=== PATIENT | male | born 1965 | race Caucasian/White ===

== ENCOUNTER → 2019-08-25 19:01 | Outpatient (CLI) | payer OTHER, SELFPAY ==
--- NOTE | 2019-08-25 19:05 | DI.MRI.S_ITS ---
PROCEDURE: MR SHOULDER RT WO CON INDICATIONS: UNSPECIFIED INJURY OF RIGHT SHOULDER TECHNIQUE: Noncontrast oblique coronal T2 fast spin echo with fat saturation, oblique sagittal T1 spin echo and T2 fast spin echo with fat saturation, axial T1 spin echo and T2 fast spin echo with fat saturation through the shoulder. COMPARISON: None. FINDINGS: Image quality: Excellent. Rotator cuff: There is a full-thickness rupture of the distal supraspinatus and infraspinatus at their insertion on humeral head with 2.8 cm medial retraction of torn tendon fibers to the level of the acromioclavicular joint. Most posterior fibers of distal infraspinatus tendon is intact. Tendinosis and low to moderate grade intrasubstance partial-thickness tear involving distal subscapularis is seen. Sagittal images demonstrate mild to moderate supraspinatus muscle atrophy. Bones and bursae: No bone marrow contusions or fractures. Moderate osteoarthritic changes in acromioclavicular joint and glenohumeral joint are seen. Moderate amount of joint effusion and subacromial subdeltoid bursal fluid is noted. No definite intra-articular loose body is seen. Capsule and soft tissues: In the absence of intra-articular contrast, there is signal abnormality and contour irregularity involving superior anterior labrum at 12 to 2:00 position suggestive of superior anterior labral tear. There is also suggestion of anterior inferior labral tear extending from 4 to 7:00 position. The glenohumeral ligaments appear intact. Tendinosis involving proximal intra-articular portion of long head biceps tendon is seen. The rotator interval appears normal, without fibrosis. The coracohumeral ligament is normal in thickness. IMPRESSION: 1. Full-thickness rupture involving distal supraspinatus and anterior to mid fibers of distal infraspinatus at their insertion on humeral head with 2.8 cm medial retraction of torn tendon fibers to the level of acromioclavicular joint. Posterior fibers of distal infraspinatus tendon is intact. Tendinosis and low to moderate grade intrasubstance partial-thickness tear involving distal subscapularis. Mild to moderate supraspinatus muscle atrophy. 2. Moderate acromioclavicular joint and glenohumeral joint osteophytes. Moderate amount of joint effusion and subacromial subdeltoid bursal fluid. No definite full-thickness rotator cuff tendon rupture. 3. Suggestion of superior anterior labral tear at 12 to 2:00 position an anterior inferior labral tear at 4 to 7:00 position. 4. Tendinosis involving proximal intra-articular portion of long head of biceps tendon. Dictated by: Yovani Sims M.D. on 08/26/2019 at 8:41 Approved by: Yovani Sims M.D. on 08/26/2019 at 10:00
== END ==
PROVIDERS: Family Provider Physician Assistant; PCP Internal Medicine; Visit Provider Family Medicine
DX: M75.121 Complete rotator cuff tear or rupture of right shoulder, not specified as traumatic (principal); M25.711 Osteophyte, right shoulder
CPT/HCPCS: 73221

== ENCOUNTER → 2020-12-27 11:53 | Outpatient (CLI) | payer OTHER, SELFPAY ==
--- NOTE | 2020-12-27 11:55 | DI.RAD.S_ITS ---
PROCEDURE: XR FOOT LT MIN 3V INDICATIONS: left foot and toe pain TECHNIQUE: 3 views of the foot were acquired. COMPARISON: None. FINDINGS: Bones: Nondisplaced oblique fracture through 3rd proximal phalangeal shaft is seen. No other fracture or dislocation. 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 Mild hallux valgus is also noted. No suspicious bony lesions. Soft tissues: No tibiotalar joint effusion. Achilles tendon appears normal. IMPRESSION: Nondisplaced oblique fracture through 3rd proximal phalangeal shaft.. [id number] 1st MTP joint osteoarthritis. Dictated by: Yovani Sims M.D. on 12/27/2020 at 12:08 Approved by: Yovani Sims M.D. on 12/27/2020 at 12:09
== END ==
PROVIDERS: Family Provider Physician Assistant; PCP Internal Medicine; Referring Provider Nurse Practitioner; Visit Provider Nurse Practitioner
DX: M79.675 Pain in left toe(s) (principal); S92.515A Nondisplaced fracture of proximal phalanx of left lesser toe(s), initial encounter for closed fracture; M19.072 Primary osteoarthritis, left ankle and foot; X58.XXXA Exposure to other specified factors, initial encounter
CPT/HCPCS: 73630

== ENCOUNTER → 2021-01-17 16:31 | Outpatient (CLI) | payer OTHER, SELFPAY ==
--- NOTE | 2021-01-17 16:35 | DI.RAD.S_ITS ---
PROCEDURE: XR FOOT LT MIN 3V INDICATIONS: Follow-up persistent pain left foot 3rd toe TECHNIQUE: 3 views of the foot were acquired. COMPARISON: [facility], CR, XR FOOT LT MIN 3V, 12/27/2020, 11:57. FINDINGS: Bones: Redemonstration of oblique fracture of the 3rd proximal phalangeal shaft with surrounding periosteal reaction is compatible with progressive healing changes. There is also periosteal reaction at the base of the 4th proximal phalanx that likely represents a healing nondisplaced fracture that is not well visualized on the prior radiographs. Mild degenerative changes are again seen at the 1st metatarsophalangeal joint. Soft tissues: No suspicious soft tissue calcification. Nonspecific soft tissue edema is seen in the forefoot. IMPRESSION: Mild progressive healing changes involving the previously seen 3rd proximal phalangeal shaft fracture. Healing changes are also seen at a nondisplaced fracture of the 4th proximal phalanx. Dictated by: Thierry Jane M.D. on 01/17/2021 at 16:06 Approved by: Thierry Jane M.D. on 01/17/2021 at 16:08
== END ==
PROVIDERS: Family Provider Physician Assistant; Referring Provider Family Medicine; Visit Provider Family Medicine
DX: S92.592D Other fracture of left lesser toe(s), subsequent encounter for fracture with routine healing (principal); S92.515D Nondisplaced fracture of proximal phalanx of left lesser toe(s), subsequent encounter for fracture with routine healing; X58.XXXD Exposure to other specified factors, subsequent encounter
CPT/HCPCS: 73630

== ENCOUNTER → 2021-03-09 11:34 | Outpatient (CLI) | payer OTHER, SELFPAY ==
--- NOTE | 2021-03-09 11:37 | DI.RAD.S_ITS ---
PROCEDURE: XR LUMBAR SPINE 2-3V INDICATIONS: lower back pain TECHNIQUE: 3 views of the lumbar spine were acquired. COMPARISON: None. FINDINGS: Bones: 5 [id number] vertebrae are present. There is incomplete sacralization of the left L5 transverse process. There is normal bony alignment. Mild multilevel anterior endplate spur formation. Moderate L4-5 facet arthropathy. No vertebral body compression fractures. No suspicious bony lesions. Soft tissues: Mild L4-5 degenerative disc height loss. Overlying bowel gas pattern is normal. No suspicious soft tissue calcifications. IMPRESSION: 1. L4-5 disc height loss and facet arthropathy. Dictated by: Ebony Verma M.D. on 03/09/2021 at 12:24 Approved by: Ebony Verma M.D. on 03/09/2021 at 12:26
--- NOTE | 2021-03-09 11:37 | DI.RAD.S_ITS ---
PROCEDURE: XR HIP W PEL IF DONE LT 2V INDICATIONS: l hip pain TECHNIQUE: Two views of the hip were acquired. COMPARISON: None. FINDINGS: Bones: No fractures or dislocations. There is superior joint space loss in the femoroacetabular joint. Mild sclerotic changes of the acetabulum and slight spurring. No suspicious bony lesions. The visualized pelvic ring appears intact. Soft tissues: No suspicious soft tissue calcifications or masses. IMPRESSION: 1. Moderate femoroacetabular joint space loss with mild sclerosis and spurring. Dictated by: Ebony Verma M.D. on 03/09/2021 at 12:30 Approved by: Ebony Verma M.D. on 03/09/2021 at 12:32
== END ==
PROVIDERS: Family Provider Physician Assistant; PCP Internal Medicine; Referring Provider Physician Assistant; Visit Provider Physician Assistant
DX: M25.552 Pain in left hip (principal); M54.5 Low back pain; M47.816 Spondylosis without myelopathy or radiculopathy, lumbar region
CPT/HCPCS: 72100; 73502

== ENCOUNTER → 2021-04-13 17:41 | Outpatient (CLI) | payer OTHER, SELFPAY ==
--- NOTE | 2021-04-13 17:42 | DI.MRI.S_ITS ---
PROCEDURE: MR LUMBAR SPINE WO CON INDICATIONS: LUMBAR RADICULOPATHY TECHNIQUE: Noncontrast sagittal T1 spin echo and T2 fast echo, sagittal STIR, axial T1 and T2 fast spin echo through the lumbar spine. In cases with scoliosis, additional coronal T2 fast spin echo may be performed. COMPARISON: None. FINDINGS: Image quality: Excellent. Alignment and Curvature: Normal lumbar vertebral body height and alignment. Bone Marrow: No suspicious focal marrow signal abnormality. Mild periarticular bone marrow edema in association with facet osteoarthropathy from L3-L4 through L5-S1. Mild discogenic marrow edema at the opposing L1-L2 endplates posteriorly and on the left. Spinal Cord: Normal position and appearance of the conus. Region Soft Tissues: Prevertebral and paraspinous soft tissues are within normal limits. T12-L1: Disc desiccation and disc height loss with diffuse shallow disc bulge. No spinal canal or neural foraminal stenosis. L1-L2: Disc desiccation and disc height loss with shallow disc bulge and a superimposed broad-based posterior disc protrusion. Disc material flattens the ventral thecal sac without mass effect upon the descending L2 nerve roots. Foraminal components of the disc bulge and facet hypertrophy contribute to mild bilateral neural foraminal stenosis. Small facet effusions. L2-L3: Diffuse disc bulge and a superimposed broad-based posterior disc protrusion flatten and indent the ventral thecal sac with mild mass effect upon the descending L3 nerve roots. Bulky facet hypertrophy and buckling of the ligamentum flavum further contribute to overall moderate spinal canal stenosis. There is some laxity of the descending nerve roots above this level suggesting an element of compression. Foraminal components of the disc bulge and facet hypertrophy contribute to mild bilateral neural foraminal narrowing. Small facet effusions. L3-L4: Diffuse disc bulge and a superimposed broad-based posterior disc protrusion flatten and indent the ventral thecal sac, with mass effect upon the descending L4 nerve roots. Bulky facet hypertrophy and buckling of the ligamentum flavum further contribute to overall mild spinal canal stenosis. Buckling of the ligamentum flavum and facet hypertrophy combine with foraminal components of the disc bulge to produce mild bilateral neural foraminal narrowing. Facet subchondral cystic change and effusions noted. L4-L5: Moderate spinal canal stenosis due to a combination of diffuse disc bulge, superimposed broad-based posterior disc protrusion, facet hypertrophy, and buckling of the ligamentum flavum. There is crowding of the traversing nerve roots with near complete effacement of the intervening CSF. Foraminal components of the disc bulge and facet hypertrophy contribute to severe left and moderate right neural foraminal narrowing. Flattening of the bilateral exiting L4 nerve roots in both neural foramina. L5-S1: Diffuse disc bulge with mild mass effect upon the descending S1 nerve roots. No neural foraminal stenosis. IMPRESSION: Moderate spinal canal stenosis at L2-L3 and L4-L5 with crowding and possible compression of the descending nerve roots at these levels. Severe left and moderate right neural foraminal stenosis at L4-L5 with flattening of the bilateral exiting L4 nerve roots. Correlate for any corresponding L4 radicular symptoms. Dictated by: Yan Reis M.D. on 04/14/2021 at 9:26 Approved by: Yan Reis M.D. on 04/14/2021 at 9:30
== END ==
PROVIDERS: Family Provider Physician Assistant; PCP Student in an Organized Health Care Education/Training Program; Referring Provider Student in an Organized Health Care Education/Training Program; Visit Provider Student in an Organized Health Care Education/Training Program
DX: M54.16 Radiculopathy, lumbar region (principal); M48.061 Spinal stenosis, lumbar region without neurogenic claudication
CPT/HCPCS: 72148

== ENCOUNTER 2021-06-29 09:00 | Outpatient (RCR) | payer OTHER, SELFPAY ==
--- NOTE | 2021-05-18 17:05 | PT.OIE ---
Current Diagnoses Radiculopathy, lumbar region (05/18/21) Past Medical History (Last Reviewed 03/11/21 @ 09:28 by GIO Rhodes) Hearing loss No significant family history Vision disorder Visit Care Team Role Provider Type Billy Flores DO Attending Provider Non-Staff Family Provider Primary Care Provider Referring Provider Specialty: Family Practice Address: [address] [place] [address], [id number] Email: Physical Therapy Initial Evaluation PT-OP-A Visit Information Start: 05/18/21 15:14 Freq: Status: Active Protocol: Document 05/18/21 16:00 AW (Rec: 05/18/21 16:28 AW [email or web address]) Out-Patient Physical Therapy Visit Information Visit Information Visit Type Initial Evaluation Visit Start Time 15:15 Visit Stop Time 16:00 Total Visit Minutes 45 Visit Number 1 Number of TRANSIT SPECIALIST Visits 0 Evaluation Information Evaluation Date 05/18/21 PT-OP-B Current Condition Start: 05/18/21 15:14 Freq: Status: Active Protocol: Document 05/18/21 16:00 AW (Rec: 05/18/21 16:05 AW [id number]) Current Condition History of Current Condition Onset Date 03/02/21 Current Complaints left groin; low back; left buttock, thigh, leg pain History of Current Condition 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 At time of evaluation, he had not been to work in three weeks. Pain is a near- constant 4/10 but easily climbs to 7/10. He complains of left leg weakness and states he feels paranoid about increasing that pain. He is now unable to complete a grocery shopping trip due to left leg and low back pain. He had THU at unknown level about two weeks ago but experienced no relief. He has prescriptions for gabapentin and meloxicam and flexeril. He has tried topical and oral CBD. Nothing has relieved his pain. Barely able to walk around [employer]. Normally able to lift as much as needed at work. Prior Treatments and Tests MRI 04/13/21: Moderate spinal canal stenosis at L2-L3 and L4 -L5 with crowding and possible compression of the descending nerve roots at these levels. Severe left and moderate right neural foraminal stenosis at L4-L5 with flattening of the bilateral exiting L4 nerve roots. Correlate for any corresponding L4 radicular symptoms. Future Testing and Treatments Planned Follow up with [facility] - Dr Rider - next week. Treatment Goals Patient/Caregiver Goals Return to work to include lifting, sitting, driving. Recreationally, pt would like to return to swimming, road cycling, MTB. He would like to be able to sleep without pain interrupting. 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 Able to sit and drive up to five hours without pain. Baseline Function- Recreation/Hobbies Participates in swimming, road cycling, and mountain biking. Current Functional Impairments (Reported) Functional Limitations- ADL's Mild to moderate difficulty with lower body dressing tasks . Functional Limitations- Work/School Unable to lift. Unable to sit or drive longer than 10 minutes. Functional Limitations- Recreation/ Unable to swim or bike. Hobbies Functional Limitations- Other Painful sleep Personal Factors Other Personal Factors That May Effect (+) Prior level of activity Therapy/Recovery PT-OP-C Subjective Start: 05/18/21 15:14 Freq: Status: Active Protocol: Document 05/18/21 16:00 AW (Rec: 05/18/21 16:28 AW [email or web address]) OP-PT Subjective Patient Comments Patient Comments Pt reports primary concern is leg pain and weakness. Patient Questionnaires Oswestry Low Back Index Oswestry Score 76 Oswestry Impairment 60 to 79% Impaired (Score 60- 79) OP-PT Pain Assessment Pain Assessment Grid Paper Pain Assessment Grid Completed Yes: Scanned to EMR Pain Behaviors Pain Behaviors Facial Grimacing,Guarding, Holding Area,Wincing PT-OP-D Balance Start: 05/18/21 15:14 Freq: Status: Active Protocol: Document 05/18/21 16:00 AW (Rec: 05/18/21 16:32 AW [email or web address]) OP-PT Balance Assessment Sitting Balance Static Sitting Balance Ability Good Dynamic Sitting Balance Ability Good Standing Balance Static Standing Balance Ability Fair Dynamic Standing Balance Ability Fair Device Used none Standing Balance Comments SLS: R 5 sec, L <3 sec on multiple trials Sommer Fall Scale Copyright Permission PT-OP-F Manual Assessment Start: 05/18/21 15:14 Freq: Status: Active Protocol: Document 05/18/21 16:00 AW (Rec: 05/18/21 16:32 AW [email or web address]) Manual Assessments Soft Tissue Assessment Soft Tissue Mobility Assessment Pt is tender to palpation at left groin, lateral and posterior hip. Joint Mobility Assessment Joint Mobility Assessment Lumbar PA's WNL PT-OP-H Neuro Start: 05/18/21 15:14 Freq: Status: Active Protocol: Document 05/18/21 16:00 AW (Rec: 05/18/21 16:32 AW [email or web address]) Sensation Evaluation Comments Summary Comments Light touch and temperature sensation intact. Pt highly reactive to pressure at left groin, lateral and posterior hip. Deep Tendon Reflex & Clonus Assessment Deep Tendon Reflex Bilateral Achilles Deep Tendon Reflex 0 Absent Bilateral Patellar Deep Tendon Reflex 1+ Diminished Bilateral Bicep Deep Tendon Reflex 2+ Normal PT-OP-J Posture/Palpation/Skin Start: 05/18/21 15:14 Freq: Status: Active Protocol: Document 05/18/21 16:00 AW (Rec: 05/18/21 16:32 AW [email or web address]) Posture Evaluation Comments Posture Comments Pt presents with decreased LLE weightbearing due to pain and guarding behaviors. PT-OP-K Range of Motion Start: 05/18/21 15:14 Freq: Status: Active Protocol: Document 05/18/21 16:00 AW (Rec: 05/18/21 16:42 AW [email or web address]) Lumbar Spine Range of Motion Lumbar Spine Active Degrees Testing Position Standing Flexion 70 Extension 20 ROM Limitations Pain Comments R SB: 1.5 above knee joint line. L SB: to knee joint line . B rotation WNL. All lateral flexion and rotation painful but left more affected than right. Hip Goniometric Range of Motion Hip ROM Limitations Comments All hip ROM WNL except left hip internal rotation severely limited by guarding and pain. PT-OP-M Strength Start: 05/18/21 15:14 Freq: Status: Active Protocol: Document 05/18/21 16:00 AW (Rec: 05/18/21 16:42 AW [email or web address]) Hip Strength Hip Manual Muscle Testing Right Flexion (L2) 5 Normal Extension (S1) 4+ Good+ Abduction 5 Normal External Rotation 5 Normal Internal Rotation 5 Normal Left Flexion (L2) 3- Fair- Extension (S1) 3 Fair Abduction 3 Fair External Rotation 4- Good- Internal Rotation 4 Good Knee Strength Knee Manual Muscle Testing bilateral Flexion (S2) 4+ Good+ Extension (L3) 5 Normal Ankle/Foot Strength Ankle and Foot Manual Muscle Testing bilateral Comments R DF 5/5. L DF 4+/5 Toe Strength Toe Manual Muscle Testing Great Toe Comments R 5/5. L 4+/5. PT-OP-Q Treatments Start: 05/18/21 15:14 Freq: Status: Active Protocol: Document 05/18/21 16:00 AW (Rec: 05/18/21 16:42 AW [email or web address]) Therapeutic Exercises Supine Exercises LTR Supine Exercise Name LTR Side bilateral Reps/Minutes 2x10 Comments cued pain free range Self-Care/Home Management Treatment Education Patient Education Body Mechanics,Posture Activities Self-Care/Home Management Activities Educated pt on sleep positioning and bed mobility for improved stability. PT-OP-T Assessment and Plan Start: 05/18/21 15:14 Freq: Status: Active Protocol: Document 05/18/21 16:00 AW (Rec: 05/18/21 17:05 AW [email or web address]) Physical Therapy Assessment Rehab Potential Rehabilitation Potential Good Evaluation Complexity Number of Personal Factors/Comorbidities 1-2 Number of Body Systems Impaired 1-2 Clinical Presentation at Evaluation Evolving Impairments Impairments Balance,Functional Activities, Functional Mobility,Gait,Pain, Posture,ROM,Sensation,Soft Tissue Mobility,Strength Goals Five Impairment lifting Short Term Goal (STG) Pt will demonstrate quality body mechanics to lift objects of 10# without increase in baseline pain. STG Duration 6 weeks - 06/29/21 Halfway Goal (LTG) Pt will demonstrate quality body mechanics to lift objects of 20# without increase in baseline pain to promote readiness for return to work. LTG Duration 12 weeks - 08/10/21 Four Impairment sitting tolerance Short Term Goal (STG) Pt will sit 45 minutes or greater without increase in baseline pain. 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 STG Duration 6 weeks - 06/29/21 Clinical Statistical Programmer Goal (LTG) Pt will score 30% or less on Modified Oswestry for improved ability to manage daily tasks and return to work. LTG Duration 12 weeks - 08/10/21 Two Impairment self-care Short Term Goal (STG) Pt will be able to complete lower body dressing tasks with 3/10 or less pain. STG Duration 6 weeks - 06/29/21 Clinical Statistical Programmer Goal (LTG) Pt will complete all ADL's with 1/10 or less pain. LTG Duration 12 weeks - 08/10/21 One Impairment lacks appropriate HEP Short Term Goal (STG) Pt will be independent with HEP to support therapy services provided in clinic. STG Duration 6 weeks - 06/29/21 Clinical Statistical Programmer Goal (LTG) Pt will return to recreational activity of choice such as swimming or cycling LTG Duration 12 weeks - 08/10/21 Assessment Summary Assessment Michael is an active 56 yo man presenting to outpatient physical therapy with complaints of low back and left leg pain which are affecting his ability to perform work duties. MRI findings include central canal and foraminal compression at L2-L3 and L4-L5 (severe on the left at L4-5). 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 All lumbar ROM is painful and left leg is globally weak. He complains of pain in the sciatic distribution which is worse with movement. Pt would benefit from skilled therapy aimed at improving lumbar range of motion and left lower extremity strength and balance with the ultimate goal of return to work. Physical Therapy Plan Frequency and Duration Frequency of Treatment 2x/Week Duration of Treatment 12 weeks Plan of Care Start Date 05/18/21 Plan of Care End Date 08/10/21 Therapeutic Interventions Therapeutic Interventions Aquatic Therapy,Balance Training,Gait Training,Home Exercise Program,Joint Mobilizations,Manual Therapy, Neuromuscular Re-education, Patient/Caregiver Education, Self-Care/Home Management, Sensory Integration,Soft Tissue Mobilization,Taping, Therapeutic Activities, Therapeutic Exercises Modalities Cold Pack/Ice Massage,Electric Stimulation,Hot Packs Next Visit Focus/Plan Next Note Type Treatment Note Next Visit Plan initiate manual therapy, gentle lumbar ROM and hip strengthening in supported position; consider mixing supine and seated or frequent changes in position for pt comfort
--- NOTE | 2021-05-20 08:13 | PT.OTN ---
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 At time of evaluation, he had not been to work in three weeks. Pain is a near- constant 4/10 but easily climbs to 7/10. He complains of left leg weakness and states he feels paranoid about increasing that pain. He is now unable to complete a grocery shopping trip due to left leg and low back pain. He had THU at unknown level about two weeks ago but experienced no relief. He has prescriptions for gabapentin and meloxicam and flexeril. He has tried topical and oral CBD. Nothing has relieved his pain. Barely able to walk around [employer]. Normally able to lift as much as needed at work. Prior Treatments and Tests MRI 04/13/21: Moderate spinal canal stenosis at L2-L3 and L4 -L5 with crowding and possible compression of the descending nerve roots at these levels. Severe left and moderate right neural foraminal stenosis at L4-L5 with flattening of the bilateral exiting L4 nerve roots. Correlate for any corresponding L4 radicular symptoms. Future Testing and Treatments Planned Follow up with [facility] - Dr Rider - next week. Treatment Goals Patient/Caregiver Goals Return to work to include lifting, sitting, driving. Recreationally, pt would like to return to swimming, road cycling, MTB. He would like to be able to sleep without pain interrupting. 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 Able to sit and drive up to five hours without pain. Baseline Function- Recreation/Hobbies Participates in swimming, road cycling, and mountain biking. Current Functional Impairments (Reported) Functional Limitations- ADL's Mild to moderate difficulty with lower body dressing tasks . Functional Limitations- Work/School Unable to lift. Unable to sit or drive longer than 10 minutes. Functional Limitations- Recreation/ Unable to swim or bike. Hobbies Functional Limitations- Other Painful sleep Personal Factors Other Personal Factors That May Effect (+) Prior level of activity Therapy/Recovery PT-OP-C Subjective Start: 05/18/21 15:14 Freq: Status: Active Protocol: Document 05/20/21 07:28 SP (Rec: 05/20/21 08:20 SP [id number]) OP-PT Subjective Patient Comments Patient Comments Pt reports the HEP had helped and performing at home, felt better after last tx. Pt continues to have debilitating pain that radiates into L glut and anterior L thigh and limits his activity. He has an inversion table, felt out once but since has a better understanding but not getting the instintanious relief had hoped. PT-OP-D Balance Start: 05/18/21 15:14 Freq: Status: Active Protocol: Document 05/18/21 16:00 AW (Rec: 05/18/21 16:32 AW [email or web address]) OP-PT Balance Assessment Sitting Balance Static Sitting Balance Ability Good Dynamic Sitting Balance Ability Good Standing Balance Static Standing Balance Ability Fair Dynamic Standing Balance Ability Fair Device Used none Standing Balance Comments SLS: R 5 sec, L <3 sec on multiple trials Sommer Fall Scale Copyright Permission PT-OP-F Manual Assessment Start: 05/18/21 15:14 Freq: Status: Active Protocol: Document 05/18/21 16:00 AW (Rec: 05/18/21 16:32 AW [email or web address]) Manual Assessments Soft Tissue Assessment Soft Tissue Mobility Assessment Pt is tender to palpation at left groin, lateral and posterior hip. Joint Mobility Assessment Joint Mobility Assessment Lumbar PA's WNL PT-OP-H Neuro Start: 05/18/21 15:14 Freq: Status: Active Protocol: Document 05/18/21 16:00 AW (Rec: 05/18/21 16:32 AW [email or web address]) Sensation Evaluation Comments Summary Comments Light touch and temperature sensation intact. Pt highly reactive to pressure at left groin, lateral and posterior hip. Deep Tendon Reflex & Clonus Assessment Deep Tendon Reflex Bilateral Achilles Deep Tendon Reflex 0 Absent Bilateral Patellar Deep Tendon Reflex 1+ Diminished Bilateral Bicep Deep Tendon Reflex 2+ Normal PT-OP-J Posture/Palpation/Skin Start: 05/18/21 15:14 Freq: Status: Active Protocol: Document 05/18/21 16:00 AW (Rec: 05/18/21 16:32 AW [email or web address]) Posture Evaluation Comments Posture Comments Pt presents with decreased LLE weightbearing due to pain and guarding behaviors. PT-OP-K Range of Motion Start: 05/18/21 15:14 Freq: Status: Active Protocol: Document 05/18/21 16:00 AW (Rec: 05/18/21 16:42 AW [email or web address]) Lumbar Spine Range of Motion Lumbar Spine Active Degrees Testing Position Standing Flexion 70 Extension 20 ROM Limitations Pain Comments R SB: 1.5 above knee joint line. L SB: to knee joint line . B rotation WNL. All lateral flexion and rotation painful but left more affected than right. Hip Goniometric Range of Motion Hip ROM Limitations Comments All hip ROM WNL except left hip internal rotation severely limited by guarding and pain. PT-OP-M Strength Start: 05/18/21 15:14 Freq: Status: Active Protocol: Document 05/18/21 16:00 AW (Rec: 05/18/21 16:42 AW [email or web address]) Hip Strength Hip Manual Muscle Testing Right Flexion (L2) 5 Normal Extension (S1) 4+ Good+ Abduction 5 Normal External Rotation 5 Normal Internal Rotation 5 Normal Left Flexion (L2) 3- Fair- Extension (S1) 3 Fair Abduction 3 Fair External Rotation 4- Good- Internal Rotation 4 Good Knee Strength Knee Manual Muscle Testing bilateral Flexion (S2) 4+ Good+ Extension (L3) 5 Normal Ankle/Foot Strength Ankle and Foot Manual Muscle Testing bilateral Comments R DF 5/5. L DF 4+/5 Toe Strength Toe Manual Muscle Testing Great Toe Comments R 5/5. L 4+/5. PT-OP-Q Treatments Start: 05/18/21 15:14 Freq: Status: Active Protocol: Document 05/20/21 07:28 SP (Rec: 05/20/21 08:20 SP [id number]) Therapeutic Exercises Supine Exercises sciatic nerve glide Supine Exercise Name w/ ankle pump Side left Reps/Minutes x10 Comments cued neutral spine LTR Supine Exercise Name LTR Side bilateral Reps/Minutes 2x10 Comments cued pain free range Sitting Exercises trunk flexion Sitting Exercise Name stretch Reps/Minutes 30 x3 Comments good feedback feels good, no pain Manual Therapy Treatment Soft Tissue Mobilization STMs Body Location L paraspinals, glut med, pirformis, L adductors Mobilization Type Cross-Friction,Myofascial Release,Sustained Pressure Intensity/Depth Moderate Body Position Prone Comments and supine. Good response feedback. PT-OP-T Assessment and Plan Start: 05/18/21 15:14 Freq: Status: Active Protocol: Document 05/20/21 07:28 SP (Rec: 05/20/21 08:20 SP [id number]) Physical Therapy Assessment Goals Five Impairment lifting Short Term Goal (STG) Pt will demonstrate quality body mechanics to lift objects of 10# without increase in baseline pain. STG Duration 6 weeks - 06/29/21 Mcfp Goal (LTG) Pt will demonstrate quality body mechanics to lift objects of 20# without increase in baseline pain to promote readiness for return to work. LTG Duration 12 weeks - 08/10/21 Four Impairment sitting tolerance Short Term Goal (STG) Pt will sit 45 minutes or greater without increase in baseline pain. 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 STG Duration 6 weeks - 06/29/21 Mcfp Goal (LTG) Pt will score 30% or less on Modified Oswestry for improved ability to manage daily tasks and return to work. LTG Duration 12 weeks - 08/10/21 Two Impairment self-care Short Term Goal (STG) Pt will be able to complete lower body dressing tasks with 3/10 or less pain. STG Duration 6 weeks - 06/29/21 Mcfp Goal (LTG) Pt will complete all ADL's with 1/10 or less pain. LTG Duration 12 weeks - 08/10/21 One Impairment lacks appropriate HEP Short Term Goal (STG) Pt will be independent with HEP to support therapy services provided in clinic. STG Duration 6 weeks - 06/29/21 Asphalt Still Operator Goal (LTG) Pt will return to recreational activity of choice such as swimming or cycling LTG Duration 12 weeks - 08/10/21 Assessment Summary Assessment Pt reported no significant relief but not worsening post manual or ther ex instructed today. Pt required instruction in slow fluid movement during pelvic tilt, LTR, initiated seated hip hinge trunk flexion with best relief almost no pain and sciatic nerve glide no worse. Trialed self manual racquetball roll at wall over paraspinals with increase radiation pain into anterior L thigh so stopped. Pt likes to perform hip hinge long sitting and standing for relief no worsening pain. Physical Therapy Plan Frequency and Duration Frequency of Treatment 2x/Week Duration of Treatment 12 weeks Plan of Care Start Date 05/18/21 Plan of Care End Date 08/10/21 Therapeutic Interventions Therapeutic Interventions Aquatic Therapy,Balance Training,Gait Training,Home Exercise Program,Joint Mobilizations,Manual Therapy, Neuromuscular Re-education, Patient/Caregiver Education, Self-Care/Home Management, Sensory Integration,Soft Tissue Mobilization,Taping, Therapeutic Activities, Therapeutic Exercises Modalities Cold Pack/Ice Massage,Electric Stimulation,Hot Packs Next Visit Focus/Plan Next Note Type Treatment Note Next Visit Plan Assess response to manual and HEP review with additions see assessment. POC: initiate manual therapy, gentle lumbar ROM and hip strengthening in supported position; consider mixing supine and seated or frequent changes in position for pt comfort
--- NOTE | 2021-05-25 09:41 | PT.OTN ---
Current Diagnoses Radiculopathy, lumbar region (05/25/21) Physical Therapy Treatment Note PT-OP-A Visit Information Start: 05/18/21 15:14 Freq: Status: Active Protocol: Document 05/25/21 09:33 AW (Rec: 05/25/21 09:38 AW [id number]) Out-Patient Physical Therapy Visit Information Visit Information Visit Type Treatment Note Visit Start Time 09:00 Visit Stop Time 09:33 Total Visit Minutes 33 Visit Number 3 Number of DIRECTOR FURNITURE Visits 0 Evaluation Information Evaluation Date 05/18/21 PT-OP-B Current Condition Start: 05/18/21 15:14 Freq: Status: Active Protocol: Document 05/18/21 16:00 AW (Rec: 05/18/21 16:05 AW [id number]) Current Condition History of Current Condition Onset Date 03/02/21 Current Complaints left groin; low back; left buttock, thigh, leg pain History of Current Condition Pt is a [place] [employer]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 At time of evaluation, he had not been to work in three weeks. Pain is a near- constant 4/10 but easily climbs to 7/10. He complains of left leg weakness and states he feels paranoid about increasing that pain. He is now unable to complete a grocery shopping trip due to left leg and low back pain. He had THU at unknown level about two weeks ago but experienced no relief. He has prescriptions for gabapentin and meloxicam and flexeril. He has tried topical and oral CBD. Nothing has relieved his pain. Barely able to walk around [employer]. Normally able to lift as much as needed at work. Prior Treatments and Tests MRI 04/13/21: Moderate spinal canal stenosis at L2-L3 and L4 -L5 with crowding and possible compression of the descending nerve roots at these levels. Severe left and moderate right neural foraminal stenosis at L4-L5 with flattening of the bilateral exiting L4 nerve roots. Correlate for any corresponding L4 radicular symptoms. Future Testing and Treatments Planned Follow up with [facility] - Dr Rider - next week. Treatment Goals Patient/Caregiver Goals Return to work to include lifting, sitting, driving. Recreationally, pt would like to return to swimming, road cycling, MTB. He would like to be able to sleep without pain interrupting. 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 Able to sit and drive up to five hours without pain. Baseline Function- Recreation/Hobbies Participates in swimming, road cycling, and mountain biking. Current Functional Impairments (Reported) Functional Limitations- ADL's Mild to moderate difficulty with lower body dressing tasks . Functional Limitations- Work/School Unable to lift. Unable to sit or drive longer than 10 minutes. Functional Limitations- Recreation/ Unable to swim or bike. Hobbies Functional Limitations- Other Painful sleep Personal Factors Other Personal Factors That May Effect (+) Prior level of activity Therapy/Recovery PT-OP-C Subjective Start: 05/18/21 15:14 Freq: Status: Active Protocol: Document 05/25/21 09:33 AW (Rec: 05/25/21 09:38 AW [id number]) OP-PT Subjective Patient Comments Patient Comments Pt is back to work today but not doing a lot of lifting. Will be driving but will be able to stop and stand as needed. PT-OP-D Balance Start: 05/18/21 15:14 Freq: Status: Active Protocol: Document 05/18/21 16:00 AW (Rec: 05/18/21 16:32 AW [email or web address]) OP-PT Balance Assessment Sitting Balance Static Sitting Balance Ability Good Dynamic Sitting Balance Ability Good Standing Balance Static Standing Balance Ability Fair Dynamic Standing Balance Ability Fair Device Used none Standing Balance Comments SLS: R 5 sec, L <3 sec on multiple trials Sommer Fall Scale Copyright Permission PT-OP-F Manual Assessment Start: 05/18/21 15:14 Freq: Status: Active Protocol: Document 05/18/21 16:00 AW (Rec: 05/18/21 16:32 AW [email or web address]) Manual Assessments Soft Tissue Assessment Soft Tissue Mobility Assessment Pt is tender to palpation at left groin, lateral and posterior hip. Joint Mobility Assessment Joint Mobility Assessment Lumbar PA's WNL PT-OP-H Neuro Start: 05/18/21 15:14 Freq: Status: Active Protocol: Document 05/18/21 16:00 AW (Rec: 05/18/21 16:32 AW [email or web address]) Sensation Evaluation Comments Summary Comments Light touch and temperature sensation intact. Pt highly reactive to pressure at left groin, lateral and posterior hip. Deep Tendon Reflex & Clonus Assessment Deep Tendon Reflex Bilateral Achilles Deep Tendon Reflex 0 Absent Bilateral Patellar Deep Tendon Reflex 1+ Diminished Bilateral Bicep Deep Tendon Reflex 2+ Normal PT-OP-J Posture/Palpation/Skin Start: 05/18/21 15:14 Freq: Status: Active Protocol: Document 05/18/21 16:00 AW (Rec: 05/18/21 16:32 AW [email or web address]) Posture Evaluation Comments Posture Comments Pt presents with decreased LLE weightbearing due to pain and guarding behaviors. PT-OP-K Range of Motion Start: 05/18/21 15:14 Freq: Status: Active Protocol: Document 05/18/21 16:00 AW (Rec: 05/18/21 16:42 AW [email or web address]) Lumbar Spine Range of Motion Lumbar Spine Active Degrees Testing Position Standing Flexion 70 Extension 20 ROM Limitations Pain Comments R SB: 1.5 above knee joint line. L SB: to knee joint line . B rotation WNL. All lateral flexion and rotation painful but left more affected than right. Hip Goniometric Range of Motion Hip ROM Limitations Comments All hip ROM WNL except left hip internal rotation severely limited by guarding and pain. PT-OP-M Strength Start: 05/18/21 15:14 Freq: Status: Active Protocol: Document 05/18/21 16:00 AW (Rec: 05/18/21 16:42 AW [email or web address]) Hip Strength Hip Manual Muscle Testing Right Flexion (L2) 5 Normal Extension (S1) 4+ Good+ Abduction 5 Normal External Rotation 5 Normal Internal Rotation 5 Normal Left Flexion (L2) 3- Fair- Extension (S1) 3 Fair Abduction 3 Fair External Rotation 4- Good- Internal Rotation 4 Good Knee Strength Knee Manual Muscle Testing bilateral Flexion (S2) 4+ Good+ Extension (L3) 5 Normal Ankle/Foot Strength Ankle and Foot Manual Muscle Testing bilateral Comments R DF 5/5. L DF 4+/5 Toe Strength Toe Manual Muscle Testing Great Toe Comments R 5/5. L 4+/5. PT-OP-Q Treatments Start: 05/18/21 15:14 Freq: Status: Active Protocol: Document 05/25/21 09:33 AW (Rec: 05/25/21 09:38 AW [id number]) Therapeutic Exercises Supine Exercises bent knee fall out Supine Exercise Name bent knee fall out and december Side bilateral Comments TrA awareness; PPT hip flexion december Supine Exercise Name leg off L side of mat, raise to mat with knee bent Side left Comments too irritating; dc'ed bridge Supine Exercise Name bridge Reps/Minutes 5SH x 10; 2 sets Comments initiate with PPT piriformis stretch Supine Exercise Name piriformis stretch Side bilateral Reps/Minutes 30 sec hold x 4 pelvic tilt Supine Exercise Name anterior and posterior Reps/Minutes x 10 sciatic nerve glide Supine Exercise Name w/ ankle pump Side left Reps/Minutes x10 Comments cued neutral spine LTR Supine Exercise Name LTR Side bilateral Reps/Minutes 2x10 Comments cued pain free range Standing Exercises hip hinge Standing Exercise Name hip hinge Equipment Used dowel for tactile feedback Reps/Minutes 8 x 2 Comments cued neutral spine Self-Care/Home Management Treatment Education Patient Education Body Mechanics,Home Exercise Program,Posture Activities Self-Care/Home Management Activities Reinforced HEP. Introduced hip hinge to beging working toward lifting activities. PT-OP-T Assessment and Plan Start: 05/18/21 15:14 Freq: Status: Active Protocol: Document 05/25/21 09:33 AW (Rec: 05/25/21 09:41 AW [id number]) Physical Therapy Assessment Goals Five Impairment lifting Short Term Goal (STG) Pt will demonstrate quality body mechanics to lift objects of 10# without increase in baseline pain. STG Duration 6 weeks - 06/29/21 Gandy Dancer Goal (LTG) Pt will demonstrate quality body mechanics to lift objects of 20# without increase in baseline pain to promote readiness for return to work. LTG Duration 12 weeks - 08/10/21 Four Impairment sitting tolerance Short Term Goal (STG) Pt will sit 45 minutes or greater without increase in baseline pain. 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 STG Duration 6 weeks - 06/29/21 Retirement Goal (LTG) Pt will score 30% or less on Modified Oswestry for improved ability to manage daily tasks and return to work. LTG Duration 12 weeks - 08/10/21 Two Impairment self-care Short Term Goal (STG) Pt will be able to complete lower body dressing tasks with 3/10 or less pain. STG Duration 6 weeks - 06/29/21 Gandy Dancer Goal (LTG) Pt will complete all ADL's with 1/10 or less pain. LTG Duration 12 weeks - 08/10/21 One Impairment lacks appropriate HEP Short Term Goal (STG) Pt will be independent with HEP to support therapy services provided in clinic. STG Duration 6 weeks - 06/29/21 Retirement Goal (LTG) Pt will return to recreational activity of choice such as swimming or cycling LTG Duration 12 weeks - 08/10/21 Assessment Summary Assessment Pt presents with decreased irritability of pain symptoms today. He tolerated ther ex and was receptive to postural education with regard to lifting but requires frequent verbal and tactile cues to maintain neutral spine in supine and in standing. Physical Therapy Plan Frequency and Duration Frequency of Treatment 2x/Week Duration of Treatment 12 weeks Plan of Care Start Date 05/18/21 Plan of Care End Date 08/10/21 Therapeutic Interventions Therapeutic Interventions Aquatic Therapy,Balance Training,Gait Training,Home Exercise Program,Joint Mobilizations,Manual Therapy, Neuromuscular Re-education, Patient/Caregiver Education, Self-Care/Home Management, Sensory Integration,Soft Tissue Mobilization,Taping, Therapeutic Activities, Therapeutic Exercises Modalities Cold Pack/Ice Massage,Electric Stimulation,Hot Packs Next Visit Focus/Plan Next Note Type Treatment Note Next Visit Plan POC: manual therapy, gentle lumbar ROM and hip strengthening in supported and standing position with emphasis on neutral spine; frequent changes in position for pt comfort
--- NOTE | 2021-05-27 08:53 | PT.OTN ---
Current Diagnoses Radiculopathy, lumbar region (05/27/21) Physical Therapy Treatment Note PT-OP-A Visit Information Start: 05/18/21 15:14 Freq: Status: Active Protocol: Document 05/27/21 08:14 SP (Rec: 05/27/21 09:02 SP [id number]) Out-Patient Physical Therapy Visit Information Visit Information Visit Type Treatment Note Visit Note Pt reported needed to leave early to get back to work. 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 At time of evaluation, he had not been to work in three weeks. Pain is a near- constant 4/10 but easily climbs to 7/10. He complains of left leg weakness and states he feels paranoid about increasing that pain. He is now unable to complete a grocery shopping trip due to left leg and low back pain. He had THU at unknown level about two weeks ago but experienced no relief. He has prescriptions for gabapentin and meloxicam and flexeril. He has tried topical and oral CBD. Nothing has relieved his pain. Barely able to walk around [employer]. Normally able to lift as much as needed at work. Prior Treatments and Tests MRI 04/13/21: Moderate spinal canal stenosis at L2-L3 and L4 -L5 with crowding and possible compression of the descending nerve roots at these levels. Severe left and moderate right neural foraminal stenosis at L4-L5 with flattening of the bilateral exiting L4 nerve roots. Correlate for any corresponding L4 radicular symptoms. Future Testing and Treatments Planned Follow up with ALYSON Rider - next week. Treatment Goals Patient/Caregiver Goals Return to work to include lifting, sitting, driving. Recreationally, pt would like to return to swimming, road cycling, MTB. He would like to be able to sleep without pain interrupting. 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 Able to sit and drive up to five hours without pain. Baseline Function- Recreation/Hobbies Participates in swimming, road cycling, and mountain biking. Current Functional Impairments (Reported) Functional Limitations- ADL's Mild to moderate difficulty with lower body dressing tasks . Functional Limitations- Work/School Unable to lift. Unable to sit or drive longer than 10 minutes. Functional Limitations- Recreation/ Unable to swim or bike. Hobbies Functional Limitations- Other Painful sleep Personal Factors Other Personal Factors That May Effect (+) Prior level of activity Therapy/Recovery PT-OP-C Subjective Start: 05/18/21 15:14 Freq: Status: Active Protocol: Document 05/27/21 08:14 SP (Rec: 05/27/21 09:02 SP [id number]) OP-PT Subjective Patient Comments Patient Comments Pt stated still having L hip pain more posterolateral than in groin lately and doesn't feel the injection has helped and wondered why got. Did have his girlfriend massage around his hip and not sure made significant difference in pain . Comes in at 5/10 pain and gets twinges of shooting laterally down L thigh to knee especially during WB coming up to standing if sitting to long. Patient Reported Progress Same PT-OP-D Balance Start: 05/18/21 15:14 Freq: Status: Active Protocol: Document 05/18/21 16:00 AW (Rec: 05/18/21 16:32 AW [email or web address]) OP-PT Balance Assessment Sitting Balance Static Sitting Balance Ability Good Dynamic Sitting Balance Ability Good Standing Balance Static Standing Balance Ability Fair Dynamic Standing Balance Ability Fair Device Used none Standing Balance Comments SLS: R 5 sec, L <3 sec on multiple trials Sommer Fall Scale Copyright Permission PT-OP-F Manual Assessment Start: 05/18/21 15:14 Freq: Status: Active Protocol: Document 05/18/21 16:00 AW (Rec: 05/18/21 16:32 AW [email or web address]) Manual Assessments Soft Tissue Assessment Soft Tissue Mobility Assessment Pt is tender to palpation at left groin, lateral and posterior hip. Joint Mobility Assessment Joint Mobility Assessment Lumbar PA's WNL PT-OP-H Neuro Start: 05/18/21 15:14 Freq: Status: Active Protocol: Document 05/18/21 16:00 AW (Rec: 05/18/21 16:32 AW [email or web address]) Sensation Evaluation Comments Summary Comments Light touch and temperature sensation intact. Pt highly reactive to pressure at left groin, lateral and posterior hip. Deep Tendon Reflex & Clonus Assessment Deep Tendon Reflex Bilateral Achilles Deep Tendon Reflex 0 Absent Bilateral Patellar Deep Tendon Reflex 1+ Diminished Bilateral Bicep Deep Tendon Reflex 2+ Normal PT-OP-J Posture/Palpation/Skin Start: 05/18/21 15:14 Freq: Status: Active Protocol: Document 05/18/21 16:00 AW (Rec: 05/18/21 16:32 AW [email or web address]) Posture Evaluation Comments Posture Comments Pt presents with decreased LLE weightbearing due to pain and guarding behaviors. PT-OP-K Range of Motion Start: 05/18/21 15:14 Freq: Status: Active Protocol: Document 05/18/21 16:00 AW (Rec: 05/18/21 16:42 AW [email or web address]) Lumbar Spine Range of Motion Lumbar Spine Active Degrees Testing Position Standing Flexion 70 Extension 20 ROM Limitations Pain Comments R SB: 1.5 above knee joint line. L SB: to knee joint line . B rotation WNL. All lateral flexion and rotation painful but left more affected than right. Hip Goniometric Range of Motion Hip ROM Limitations Comments All hip ROM WNL except left hip internal rotation severely limited by guarding and pain. PT-OP-M Strength Start: 05/18/21 15:14 Freq: Status: Active Protocol: Document 05/18/21 16:00 AW (Rec: 05/18/21 16:42 AW [email or web address]) Hip Strength Hip Manual Muscle Testing Right Flexion (L2) 5 Normal Extension (S1) 4+ Good+ Abduction 5 Normal External Rotation 5 Normal Internal Rotation 5 Normal Left Flexion (L2) 3- Fair- Extension (S1) 3 Fair Abduction 3 Fair External Rotation 4- Good- Internal Rotation 4 Good Knee Strength Knee Manual Muscle Testing bilateral Flexion (S2) 4+ Good+ Extension (L3) 5 Normal Ankle/Foot Strength Ankle and Foot Manual Muscle Testing bilateral Comments R DF 5/5. L DF 4+/5 Toe Strength Toe Manual Muscle Testing Great Toe Comments R 5/5. L 4+/5. PT-OP-Q Treatments Start: 05/18/21 15:14 Freq: Status: Active Protocol: Document 05/27/21 08:14 SP (Rec: 05/27/21 09:02 SP [id number]) Therapeutic Exercises Supine Exercises ab roller/ rocker Supine Exercise Name Discussed self ab roller system supports upper body crunch Comments has no pain and supports head- stated sounds ok to do with ease slow pace Adalberto stretch Supine Exercise Name off table Side left Reps/Minutes Dc'd Comments stopped immediately due to increase pain in anterior L hip bent knee fall out Supine Exercise Name bent knee fall out Side bilateral Comments cued TrA awareness; PPT hip flexion december Supine Exercise Name TA DL sequencial march Side bilateral Reps/Minutes x5 reps lead each LE Comments cued for proper form, little soreness in hip flexor but states is ok. piriformis stretch Supine Exercise Name piriformis stretch Side bilateral Reps/Minutes 30 sec hold x 4 Comments manual and self good response pelvic tilt Supine Exercise Name anterior and posterior Reps/Minutes x 10 Comments cued slow pacing control sciatic nerve glide Supine Exercise Name w/ ankle pump Side left Reps/Minutes 2x10 Comments cued neutral spine LTR Supine Exercise Name LTR Side bilateral Reps/Minutes 2x10 Comments cued pain free range Manual Therapy Treatment Soft Tissue Mobilization STMs Body Location L paraspinals, glut med, pirformis, L adductors Mobilization Type Cross-Friction,Myofascial Release,Sustained Pressure Intensity/Depth Moderate Body Position Prone Comments and supine. Good response feedback. Joint Mobilizations L hip Direction inferior and lateral glide Grade II Body Position hookyling Reps/Duration mob strap and long leg pull Comments no significant difference, felt more strap pressure on thigh so stopped. PT-OP-T Assessment and Plan Start: 05/18/21 15:14 Freq: Status: Active Protocol: Document 05/27/21 08:14 SP (Rec: 05/27/21 09:02 SP [id number]) Physical Therapy Assessment Goals Five Impairment lifting Short Term Goal (STG) Pt will demonstrate quality body mechanics to lift objects of 10# without increase in baseline pain. STG Duration 6 weeks - 06/29/21 Intermediate Goal (LTG) Pt will demonstrate quality body mechanics to lift objects of 20# without increase in baseline pain to promote readiness for return to work. LTG Duration 12 weeks - 08/10/21 Four Impairment sitting tolerance Short Term Goal (STG) Pt will sit 45 minutes or greater without increase in baseline pain. 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 STG Duration 6 weeks - 06/29/21 Frame Stripper And Crusher Goal (LTG) Pt will score 30% or less on Modified Oswestry for improved ability to manage daily tasks and return to work. LTG Duration 12 weeks - 08/10/21 Two Impairment self-care Short Term Goal (STG) Pt will be able to complete lower body dressing tasks with 3/10 or less pain. STG Duration 6 weeks - 06/29/21 Intermediate Goal (LTG) Pt will complete all ADL's with 1/10 or less pain. LTG Duration 12 weeks - 08/10/21 One Impairment lacks appropriate HEP Short Term Goal (STG) Pt will be independent with HEP to support therapy services provided in clinic. STG Duration 6 weeks - 06/29/21 Intermediate Goal (LTG) Pt will return to recreational activity of choice such as swimming or cycling LTG Duration 12 weeks - 08/10/21 Assessment Summary Assessment Tx focused on manual and self stretching, use of racquetball on wall or girlfriend to decrease pain. Required cuing for slow pacing TA during december and knee fallout. Pt reported L hip pain stilll 5/ 10 end tx and noted antalgic gait leaving. Pt declined modalities due to needing to get back to work but is going to order a self TENS for home use. told him insurance won 't cover it. Physical Therapy Plan Frequency and Duration Frequency of Treatment 2x/Week Duration of Treatment 12 weeks Plan of Care Start Date 05/18/21 Plan of Care End Date 08/10/21 Therapeutic Interventions Therapeutic Interventions Aquatic Therapy,Balance Training,Gait Training,Home Exercise Program,Joint Mobilizations,Manual Therapy, Neuromuscular Re-education, Patient/Caregiver Education, Self-Care/Home Management, Sensory Integration,Soft Tissue Mobilization,Taping, Therapeutic Activities, Therapeutic Exercises Modalities Cold Pack/Ice Massage,Electric Stimulation,Hot Packs Next Visit Focus/Plan Next Note Type Treatment Note Next Visit Plan POC: manual therapy, gentle lumbar ROM and hip strengthening in supported and standing position with emphasis on neutral spine; frequent changes in position for pt comfort
--- NOTE | 2021-06-07 10:35 | PT.OTN ---
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 At time of evaluation, he had not been to work in three weeks. Pain is a near- constant 4/10 but easily climbs to 7/10. He complains of left leg weakness and states he feels paranoid about increasing that pain. He is now unable to complete a grocery shopping trip due to left leg and low back pain. He had THU at unknown level about two weeks ago but experienced no relief. He has prescriptions for gabapentin and meloxicam and flexeril. He has tried topical and oral CBD. Nothing has relieved his pain. Barely able to walk around [employer]. Normally able to lift as much as needed at work. Prior Treatments and Tests MRI 04/13/21: Moderate spinal canal stenosis at L2-L3 and L4 -L5 with crowding and possible compression of the descending nerve roots at these levels. Severe left and moderate right neural foraminal stenosis at L4-L5 with flattening of the bilateral exiting L4 nerve roots. Correlate for any corresponding L4 radicular symptoms. Future Testing and Treatments Planned Follow up with ALYSON Rider - next week. Treatment Goals Patient/Caregiver Goals Return to work to include lifting, sitting, driving. Recreationally, pt would like to return to swimming, road cycling, MTB. He would like to be able to sleep without pain interrupting. 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 Able to sit and drive up to five hours without pain. Baseline Function- Recreation/Hobbies Participates in swimming, road cycling, and mountain biking. Current Functional Impairments (Reported) Functional Limitations- ADL's Mild to moderate difficulty with lower body dressing tasks . Functional Limitations- Work/School Unable to lift. Unable to sit or drive longer than 10 minutes. Functional Limitations- Recreation/ Unable to swim or bike. Hobbies Functional Limitations- Other Painful sleep Personal Factors Other Personal Factors That May Effect (+) Prior level of activity Therapy/Recovery PT-OP-C Subjective Start: 05/18/21 15:14 Freq: Status: Active Protocol: Document 06/07/21 09:52 SP (Rec: 06/07/21 10:49 SP [id number]) OP-PT Subjective Patient Comments Patient Comments Pt reported his L hip not getting better, actually worse and wants to know why. Saw [facility] and not recommending surgery teleappt. Patient Reported Progress Worse PT-OP-D Balance Start: 05/18/21 15:14 Freq: Status: Active Protocol: Document 05/18/21 16:00 AW (Rec: 05/18/21 16:32 AW [email or web address]) OP-PT Balance Assessment Sitting Balance Static Sitting Balance Ability Good Dynamic Sitting Balance Ability Good Standing Balance Static Standing Balance Ability Fair Dynamic Standing Balance Ability Fair Device Used none Standing Balance Comments SLS: R 5 sec, L <3 sec on multiple trials Sommer Fall Scale Copyright Permission PT-OP-F Manual Assessment Start: 05/18/21 15:14 Freq: Status: Active Protocol: Document 05/18/21 16:00 AW (Rec: 05/18/21 16:32 AW [email or web address]) Manual Assessments Soft Tissue Assessment Soft Tissue Mobility Assessment Pt is tender to palpation at left groin, lateral and posterior hip. Joint Mobility Assessment Joint Mobility Assessment Lumbar PA's WNL PT-OP-H Neuro Start: 05/18/21 15:14 Freq: Status: Active Protocol: Document 05/18/21 16:00 AW (Rec: 05/18/21 16:32 AW [email or web address]) Sensation Evaluation Comments Summary Comments Light touch and temperature sensation intact. Pt highly reactive to pressure at left groin, lateral and posterior hip. Deep Tendon Reflex & Clonus Assessment Deep Tendon Reflex Bilateral Achilles Deep Tendon Reflex 0 Absent Bilateral Patellar Deep Tendon Reflex 1+ Diminished Bilateral Bicep Deep Tendon Reflex 2+ Normal PT-OP-J Posture/Palpation/Skin Start: 05/18/21 15:14 Freq: Status: Active Protocol: Document 05/18/21 16:00 AW (Rec: 05/18/21 16:32 AW [email or web address]) Posture Evaluation Comments Posture Comments Pt presents with decreased LLE weightbearing due to pain and guarding behaviors. PT-OP-K Range of Motion Start: 05/18/21 15:14 Freq: Status: Active Protocol: Document 05/18/21 16:00 AW (Rec: 05/18/21 16:42 AW [email or web address]) Lumbar Spine Range of Motion Lumbar Spine Active Degrees Testing Position Standing Flexion 70 Extension 20 ROM Limitations Pain Comments R SB: 1.5 above knee joint line. L SB: to knee joint line . B rotation WNL. All lateral flexion and rotation painful but left more affected than right. Hip Goniometric Range of Motion Hip ROM Limitations Comments All hip ROM WNL except left hip internal rotation severely limited by guarding and pain. PT-OP-M Strength Start: 05/18/21 15:14 Freq: Status: Active Protocol: Document 05/18/21 16:00 AW (Rec: 05/18/21 16:42 AW [email or web address]) Hip Strength Hip Manual Muscle Testing Right Flexion (L2) 5 Normal Extension (S1) 4+ Good+ Abduction 5 Normal External Rotation 5 Normal Internal Rotation 5 Normal Left Flexion (L2) 3- Fair- Extension (S1) 3 Fair Abduction 3 Fair External Rotation 4- Good- Internal Rotation 4 Good Knee Strength Knee Manual Muscle Testing bilateral Flexion (S2) 4+ Good+ Extension (L3) 5 Normal Ankle/Foot Strength Ankle and Foot Manual Muscle Testing bilateral Comments R DF 5/5. L DF 4+/5 Toe Strength Toe Manual Muscle Testing Great Toe Comments R 5/5. L 4+/5. PT-OP-Q Treatments Start: 05/18/21 15:14 Freq: Status: Active Protocol: Document 06/07/21 09:52 SP (Rec: 06/07/21 10:49 SP [id number]) Therapeutic Exercises Supine Exercises clam shell Supine Exercise Name added to HEP Resistance TB #2 loop Reps/Minutes x10 Comments felt seemed to help lesson tightness over Lateral L hip HS and ITB stretch Supine Exercise Name added to HEP Side left Equipment Used strap Reps/Minutes 30 x3 Comments better relief of L hip anterolateral LTR Supine Exercise Name LTR Side bilateral Reps/Minutes 2x10 Comments cued pain free range Standing Exercises band walk Standing Exercise Name added to HEP Resistance TB #2 loop Reps/Minutes 10 ft x 3laps Comments cued slow small eccentric steps- good response not as much tightness L hip Manual Therapy Treatment Soft Tissue Mobilization STMs Body Location L glut med, pirformis, TFL, ITB Mobilization Type Cross-Friction,Myofascial Release,Sustained Pressure Intensity/Depth Moderate Body Position Sidelying Comments decreased tightness Joint Mobilizations lumbar traction Grade II Body Position Hooklying Reps/Duration 30 x3 Comments no change, constant tightness over anterolateral L hip L hip Direction inferior and lateral glide Grade II Body Position hookyling Reps/Duration mob strap and long leg pull Comments no significant difference, felt more strap pressure on thigh so stopped. PT-OP-T Assessment and Plan Start: 05/18/21 15:14 Freq: Status: Active Protocol: Document 06/07/21 09:52 SP (Rec: 06/07/21 10:49 SP [id number]) Physical Therapy Assessment Goals Five Impairment lifting Short Term Goal (STG) Pt will demonstrate quality body mechanics to lift objects of 10# without increase in baseline pain. STG Duration 6 weeks - 06/29/[address] Goal (LTG) Pt will demonstrate quality body mechanics to lift objects of 20# without increase in baseline pain to promote readiness for return to work. LTG Duration 12 weeks - 08/10/21 Four Impairment sitting tolerance Short Term Goal (STG) Pt will sit 45 minutes or greater without increase in baseline pain. 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 STG Duration 6 weeks - 06/29/21 Detention Goal (LTG) Pt will score 30% or less on Modified Oswestry for improved ability to manage daily tasks and return to work. LTG Duration 12 weeks - 08/10/21 Two Impairment self-care Short Term Goal (STG) Pt will be able to complete lower body dressing tasks with 3/10 or less pain. STG Duration 6 weeks - 06/29/21 Detention Goal (LTG) Pt will complete all ADL's with 1/10 or less pain. LTG Duration 12 weeks - 08/10/21 One Impairment lacks appropriate HEP Short Term Goal (STG) Pt will be independent with HEP to support therapy services provided in clinic. STG Duration 6 weeks - 06/29/[address] Goal (LTG) Pt will return to recreational activity of choice such as swimming or cycling LTG Duration 12 weeks - 08/10/21 Assessment Summary Assessment Pt tolerated manual, initiated stretching ITB, HS w/ strap and initated clamshell Tb and band walk this tx. Improved decrease pain end tx. Will try change appt with HOTEL MAINTENANCE ENGINEER to PT next tx for futher assessment to L hip and no significant change in pain and almost worse. Pt has seen [facility] and told not recommending surgery to L hip but wants someone to help figure out why pain not going away and it limits his activity. Recommended pt to see [facility] and review xrays and MRI if further specialty assessment needed for continued pain having. Recommending PT to see pt next tx. Physical Therapy Plan Frequency and Duration Frequency of Treatment 2x/Week Duration of Treatment 12 weeks Plan of Care Start Date 05/18/21 Plan of Care End Date 08/10/21 Therapeutic Interventions Therapeutic Interventions Aquatic Therapy,Balance Training,Gait Training,Home Exercise Program,Joint Mobilizations,Manual Therapy, Neuromuscular Re-education, Patient/Caregiver Education, Self-Care/Home Management, Sensory Integration,Soft Tissue Mobilization,Taping, Therapeutic Activities, Therapeutic Exercises Modalities Cold Pack/Ice Massage,Electric Stimulation,Hot Packs Next Visit Focus/Plan Next Note Type Treatment Note Next Visit Plan Assess L hip alignment by PT. POC: manual therapy, gentle lumbar ROM and hip strengthening in supported and standing position with emphasis on neutral spine; frequent changes in position for pt comfort
--- NOTE | 2021-06-13 09:02 | PT.OTN ---
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 At time of evaluation, he had not been to work in three weeks. Pain is a near- constant 4/10 but easily climbs to 7/10. He complains of left leg weakness and states he feels paranoid about increasing that pain. He is now unable to complete a grocery shopping trip due to left leg and low back pain. He had THU at unknown level about two weeks ago but experienced no relief. He has prescriptions for gabapentin and meloxicam and flexeril. He has tried topical and oral CBD. Nothing has relieved his pain. Barely able to walk around [employer]. Normally able to lift as much as needed at work. Prior Treatments and Tests MRI 04/13/21: Moderate spinal canal stenosis at L2-L3 and L4 -L5 with crowding and possible compression of the descending nerve roots at these levels. Severe left and moderate right neural foraminal stenosis at L4-L5 with flattening of the bilateral exiting L4 nerve roots. Correlate for any corresponding L4 radicular symptoms. Future Testing and Treatments Planned Follow up with [facility] - Dr Rider - next week. Treatment Goals Patient/Caregiver Goals Return to work to include lifting, sitting, driving. Recreationally, pt would like to return to swimming, road cycling, MTB. He would like to be able to sleep without pain interrupting. 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 Able to sit and drive up to five hours without pain. Baseline Function- Recreation/Hobbies Participates in swimming, road cycling, and mountain biking. Current Functional Impairments (Reported) Functional Limitations- ADL's Mild to moderate difficulty with lower body dressing tasks . Functional Limitations- Work/School Unable to lift. Unable to sit or drive longer than 10 minutes. Functional Limitations- Recreation/ Unable to swim or bike. Hobbies Functional Limitations- Other Painful sleep Personal Factors Other Personal Factors That May Effect (+) Prior level of activity Therapy/Recovery PT-OP-C Subjective Start: 05/18/21 15:14 Freq: Status: Active Protocol: Document 06/13/21 08:16 SP (Rec: 06/13/21 12:04 SP [id number]) OP-PT Subjective Patient Comments Patient Comments Pt reported L hip pain better but still hurt mostly when adducts leg showed hooklying L hip adduction directioning, saw new chiropractor consultation (friend) and L hip seems low and maybe why having pain. Pt stated pain did get little more painful after last tx but as day went on got better. The tingling in leg much better, mostly notice when in bed. Patient Reported Progress Improving PT-OP-D Balance Start: 05/18/21 15:14 Freq: Status: Active Protocol: Document 05/18/21 16:00 AW (Rec: 05/18/21 16:32 AW [email or web address]) OP-PT Balance Assessment Sitting Balance Static Sitting Balance Ability Good Dynamic Sitting Balance Ability Good Standing Balance Static Standing Balance Ability Fair Dynamic Standing Balance Ability Fair Device Used none Standing Balance Comments SLS: R 5 sec, L <3 sec on multiple trials Sommer Fall Scale Copyright Permission PT-OP-F Manual Assessment Start: 05/18/21 15:14 Freq: Status: Active Protocol: Document 05/18/21 16:00 AW (Rec: 05/18/21 16:32 AW [email or web address]) Manual Assessments Soft Tissue Assessment Soft Tissue Mobility Assessment Pt is tender to palpation at left groin, lateral and posterior hip. Joint Mobility Assessment Joint Mobility Assessment Lumbar PA's WNL PT-OP-H Neuro Start: 05/18/21 15:14 Freq: Status: Active Protocol: Document 05/18/21 16:00 AW (Rec: 05/18/21 16:32 AW [email or web address]) Sensation Evaluation Comments Summary Comments Light touch and temperature sensation intact. Pt highly reactive to pressure at left groin, lateral and posterior hip. Deep Tendon Reflex & Clonus Assessment Deep Tendon Reflex Bilateral Achilles Deep Tendon Reflex 0 Absent Bilateral Patellar Deep Tendon Reflex 1+ Diminished Bilateral Bicep Deep Tendon Reflex 2+ Normal PT-OP-J Posture/Palpation/Skin Start: 05/18/21 15:14 Freq: Status: Active Protocol: Document 05/18/21 16:00 AW (Rec: 05/18/21 16:32 AW [email or web address]) Posture Evaluation Comments Posture Comments Pt presents with decreased LLE weightbearing due to pain and guarding behaviors. PT-OP-K Range of Motion Start: 05/18/21 15:14 Freq: Status: Active Protocol: Document 05/18/21 16:00 AW (Rec: 05/18/21 16:42 AW [email or web address]) Lumbar Spine Range of Motion Lumbar Spine Active Degrees Testing Position Standing Flexion 70 Extension 20 ROM Limitations Pain Comments R SB: 1.5 above knee joint line. L SB: to knee joint line . B rotation WNL. All lateral flexion and rotation painful but left more affected than right. Hip Goniometric Range of Motion Hip ROM Limitations Comments All hip ROM WNL except left hip internal rotation severely limited by guarding and pain. PT-OP-M Strength Start: 05/18/21 15:14 Freq: Status: Active Protocol: Document 05/18/21 16:00 AW (Rec: 05/18/21 16:42 AW [email or web address]) Hip Strength Hip Manual Muscle Testing Right Flexion (L2) 5 Normal Extension (S1) 4+ Good+ Abduction 5 Normal External Rotation 5 Normal Internal Rotation 5 Normal Left Flexion (L2) 3- Fair- Extension (S1) 3 Fair Abduction 3 Fair External Rotation 4- Good- Internal Rotation 4 Good Knee Strength Knee Manual Muscle Testing bilateral Flexion (S2) 4+ Good+ Extension (L3) 5 Normal Ankle/Foot Strength Ankle and Foot Manual Muscle Testing bilateral Comments R DF 5/5. L DF 4+/5 Toe Strength Toe Manual Muscle Testing Great Toe Comments R 5/5. L 4+/5. PT-OP-Q Treatments Start: 05/18/21 15:14 Freq: Status: Active Protocol: Document 06/13/21 08:16 SP (Rec: 06/13/21 12:04 SP [id number]) Therapeutic Exercises Supine Exercises clam shell Supine Exercise Name reviewed HEP Resistance TB #2 loop Reps/Minutes x10 Comments no pain but little tight in L hip HS and ITB stretch Supine Exercise Name reviewed HEP Side left Equipment Used strap Reps/Minutes 30 x3 Comments better relief of L hip anterolateral bridge Supine Exercise Name bridge- reviewed HEP Resistance Tb #2 x5 w/ little L hip pinch > AROM better Reps/Minutes 5SH x 10; 2 sets Comments cued initiate with PPT and TA fac, slow eccentric pacing for stab piriformis stretch Supine Exercise Name piriformis stretch supine and seated Side bilateral Reps/Minutes 30 sec hold x 4 Comments little tight and uncomfortable but ok to decreased tightness sciatic nerve glide Supine Exercise Name w/ ankle pump Side left Reps/Minutes 2x10 Comments cued neutral spine LTR Supine Exercise Name LTR Side bilateral Reps/Minutes 2x10 Comments cued pain free range Standing Exercises hip abd, ext TB Standing Exercise Name added to HEP Side left Equipment Used chair contact Reps/Minutes x10 reps each direction Comments no pain band walk Standing Exercise Name reviewed HEP f/b/side stepping Resistance TB #2 loop Reps/Minutes 10 ft x 3laps Comments cued slow small eccentric steps- good response not as much tightness L hip Manual Therapy Treatment Soft Tissue Mobilization STMs Body Location L glut med, pirformis, TFL, ITB Mobilization Type Cross-Friction,Myofascial Release,Sustained Pressure Intensity/Depth Moderate Body Position Sidelying Comments decreased tightness, reviewed discussed self STMs using rolling pin and racquetball at wall for added self massage. Joint Mobilizations LLE long axis traction Joint L hip Direction inferior manual Grade II Body Position Supine Reps/Duration 3x 30 sec hold Comments good feedback response- This feels good, continue to use inversion table for self traction approx 1 min x3 daily and seems to help. Self-Care/Home Management Treatment Education Patient Education Body Mechanics,Home Exercise Program,Posture Caregiver Education Pt and girlfriend education on self and manual STMs to TFL, pirformis, ITB, responds well to long axis manual traction to L hip with good feedback results. PT-OP-T Assessment and Plan Start: 05/18/21 15:14 Freq: Status: Active Protocol: Document 06/13/21 08:16 SP (Rec: 06/13/21 12:04 SP [id number]) Physical Therapy Assessment Goals Five Impairment lifting Short Term Goal (STG) Pt will demonstrate quality body mechanics to lift objects of 10# without increase in baseline pain. STG Duration 6 weeks - 06/29/21 Rv Body Mechanic Goal (LTG) Pt will demonstrate quality body mechanics to lift objects of 20# without increase in baseline pain to promote readiness for return to work. LTG Duration 12 weeks - 08/10/21 Four Impairment sitting tolerance Short Term Goal (STG) Pt will sit 45 minutes or greater without increase in baseline pain. 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 STG Duration 6 weeks - 06/29/21 Rv Body Mechanic Goal (LTG) Pt will score 30% or less on Modified Oswestry for improved ability to manage daily tasks and return to work. LTG Duration 12 weeks - 08/10/21 Two Impairment self-care Short Term Goal (STG) Pt will be able to complete lower body dressing tasks with 3/10 or less pain. STG Duration 6 weeks - 06/29/21 Residential Goal (LTG) Pt will complete all ADL's with 1/10 or less pain. LTG Duration 12 weeks - 08/10/21 One Impairment lacks appropriate HEP Short Term Goal (STG) Pt will be independent with HEP to support therapy services provided in clinic. STG Duration 6 weeks - 06/29/21 Rv Body Mechanic Goal (LTG) Pt will return to recreational activity of choice such as swimming or cycling LTG Duration 12 weeks - 08/10/21 Assessment Summary Assessment Pt responded well to manual and hip abd strengthening. Required increased time for pt and caregiver eduction on self application at home. Pt stated very low pain when leaving, maybe the exercises are helping. Pt stated see the chiropractor again for more hands on to see if that can help as well. DIRECTOR GEOPH[employer]ICAL [employer]ORATORY suggested communictaion with referring base physician for awareness how L hip is responding. Physical Therapy Plan Frequency and Duration Frequency of Treatment 2x/Week Duration of Treatment 12 weeks Plan of Care Start Date 05/18/21 Plan of Care End Date 08/10/21 Therapeutic Interventions Therapeutic Interventions Aquatic Therapy,Balance Training,Gait Training,Home Exercise Program,Joint Mobilizations,Manual Therapy, Neuromuscular Re-education, Patient/Caregiver Education, Self-Care/Home Management, Sensory Integration,Soft Tissue Mobilization,Taping, Therapeutic Activities, Therapeutic Exercises Modalities Cold Pack/Ice Massage,Electric Stimulation,Hot Packs Next Visit Focus/Plan Next Note Type Treatment Note Next Visit Plan Assess L hip alignment, assess HEP. POC: continue manual therapy, gentle lumbar ROM and hip strengthening in supported and standing position with emphasis on neutral spine; frequent changes in position for pt comfort
--- NOTE | 2021-06-15 12:08 | PT.OTN ---
Current Diagnoses Radiculopathy, lumbar region (06/15/21) Physical Therapy Treatment Note PT-OP-A Visit Information Start: 05/18/21 15:14 Freq: Status: Active Protocol: Document 06/15/21 09:45 AW (Rec: 06/15/21 09:45 AW [id number]) Out-Patient Physical Therapy Visit Information Visit Information Visit Type Treatment Note Visit Start Time 09:02 Visit Stop Time 09:45 Total Visit Minutes 43 Visit Number 7 Number of FRONT LOAD TRASH TRUCK DRIVER Visits 0 Evaluation Information Evaluation Date 05/18/21 PT-OP-B Current Condition Start: 05/18/21 15:14 Freq: Status: Active Protocol: Document 05/18/21 16:00 AW (Rec: 05/18/21 16:05 AW [id number]) Current Condition History of Current Condition Onset Date 03/02/21 Current Complaints left groin; low back; left buttock, thigh, leg pain History of Current Condition Pt is a [employer]. 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 At time of evaluation, he had not been to work in three weeks. Pain is a near- constant 4/10 but easily climbs to 7/10. He complains of left leg weakness and states he feels paranoid about increasing that pain. He is now unable to complete a grocery shopping trip due to left leg and low back pain. He had THU at unknown level about two weeks ago but experienced no relief. He has prescriptions for gabapentin and meloxicam and flexeril. He has tried topical and oral CBD. Nothing has relieved his pain. Barely able to walk around [employer]. Normally able to lift as much as needed at work. Prior Treatments and Tests MRI 04/13/21: Moderate spinal canal stenosis at L2-L3 and L4 -L5 with crowding and possible compression of the descending nerve roots at these levels. Severe left and moderate right neural foraminal stenosis at L4-L5 with flattening of the bilateral exiting L4 nerve roots. Correlate for any corresponding L4 radicular symptoms. Future Testing and Treatments Planned Follow up with [facility] - Dr Rider - next week. Treatment Goals Patient/Caregiver Goals Return to work to include lifting, sitting, driving. Recreationally, pt would like to return to swimming, road cycling, MTB. He would like to be able to sleep without pain interrupting. 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 Able to sit and drive up to five hours without pain. Baseline Function- Recreation/Hobbies Participates in swimming, road cycling, and mountain biking. Current Functional Impairments (Reported) Functional Limitations- ADL's Mild to moderate difficulty with lower body dressing tasks . Functional Limitations- Work/School Unable to lift. Unable to sit or drive longer than 10 minutes. Functional Limitations- Recreation/ Unable to swim or bike. Hobbies Functional Limitations- Other Painful sleep Personal Factors Other Personal Factors That May Effect (+) Prior level of activity Therapy/Recovery PT-OP-C Subjective Start: 05/18/21 15:14 Freq: Status: Active Protocol: Document 06/15/21 09:45 AW (Rec: 06/15/21 09:45 AW [id number]) OP-PT Subjective Patient Comments Patient Comments Working today. Still with pain in left hip - achy, gnawing but less pain down the leg generally. Patient Reported Progress Same PT-OP-D Balance Start: 05/18/21 15:14 Freq: Status: Active Protocol: Document 05/18/21 16:00 AW (Rec: 05/18/21 16:32 AW [email or web address]) OP-PT Balance Assessment Sitting Balance Static Sitting Balance Ability Good Dynamic Sitting Balance Ability Good Standing Balance Static Standing Balance Ability Fair Dynamic Standing Balance Ability Fair Device Used none Standing Balance Comments SLS: R 5 sec, L <3 sec on multiple trials Sommer Fall Scale Copyright Permission PT-OP-F Manual Assessment Start: 05/18/21 15:14 Freq: Status: Active Protocol: Document 05/18/21 16:00 AW (Rec: 05/18/21 16:32 AW [email or web address]) Manual Assessments Soft Tissue Assessment Soft Tissue Mobility Assessment Pt is tender to palpation at left groin, lateral and posterior hip. Joint Mobility Assessment Joint Mobility Assessment Lumbar PA's WNL PT-OP-H Neuro Start: 05/18/21 15:14 Freq: Status: Active Protocol: Document 05/18/21 16:00 AW (Rec: 05/18/21 16:32 AW [email or web address]) Sensation Evaluation Comments Summary Comments Light touch and temperature sensation intact. Pt highly reactive to pressure at left groin, lateral and posterior hip. Deep Tendon Reflex & Clonus Assessment Deep Tendon Reflex Bilateral Achilles Deep Tendon Reflex 0 Absent Bilateral Patellar Deep Tendon Reflex 1+ Diminished Bilateral Bicep Deep Tendon Reflex 2+ Normal PT-OP-J Posture/Palpation/Skin Start: 05/18/21 15:14 Freq: Status: Active Protocol: Document 05/18/21 16:00 AW (Rec: 05/18/21 16:32 AW [email or web address]) Posture Evaluation Comments Posture Comments Pt presents with decreased LLE weightbearing due to pain and guarding behaviors. PT-OP-K Range of Motion Start: 05/18/21 15:14 Freq: Status: Active Protocol: Document 05/18/21 16:00 AW (Rec: 05/18/21 16:42 AW [email or web address]) Lumbar Spine Range of Motion Lumbar Spine Active Degrees Testing Position Standing Flexion 70 Extension 20 ROM Limitations Pain Comments R SB: 1.5 above knee joint line. L SB: to knee joint line . B rotation WNL. All lateral flexion and rotation painful but left more affected than right. Hip Goniometric Range of Motion Hip ROM Limitations Comments All hip ROM WNL except left hip internal rotation severely limited by guarding and pain. PT-OP-M Strength Start: 05/18/21 15:14 Freq: Status: Active Protocol: Document 05/18/21 16:00 AW (Rec: 05/18/21 16:42 AW [email or web address]) Hip Strength Hip Manual Muscle Testing Right Flexion (L2) 5 Normal Extension (S1) 4+ Good+ Abduction 5 Normal External Rotation 5 Normal Internal Rotation 5 Normal Left Flexion (L2) 3- Fair- Extension (S1) 3 Fair Abduction 3 Fair External Rotation 4- Good- Internal Rotation 4 Good Knee Strength Knee Manual Muscle Testing bilateral Flexion (S2) 4+ Good+ Extension (L3) 5 Normal Ankle/Foot Strength Ankle and Foot Manual Muscle Testing bilateral Comments R DF 5/5. L DF 4+/5 Toe Strength Toe Manual Muscle Testing Great Toe Comments R 5/5. L 4+/5. PT-OP-Q Treatments Start: 05/18/21 15:14 Freq: Status: Active Protocol: Document 06/15/21 09:45 AW (Rec: 06/15/21 09:45 AW [id number]) Therapeutic Exercises Supine Exercises piriformis stretch Supine Exercise Name piriformis stretch supine and seated Side bilateral Reps/Minutes 30 sec hold x 4 Comments little tight and uncomfortable but ok to decreased tightness sciatic nerve glide Supine Exercise Name w/ ankle pump Side left Reps/Minutes 2x10 Comments cued neutral spine Prone Exercises prone press up Prone Exercise Name prone press up Reps/Minutes 30 sec x 5 Comments with lumbar PA's Sidelying Exercises left lumbar rotation Sidelying Exercise Name left lumbar rotation Equipment Used SL right, LLE fwd off mat, LUE reaching behind Comments combined with manual facet gapping Standing Exercises modified press up Standing Exercise Name modified press up Equipment Used wall Reps/Minutes x8 Comments unclear response hip abd, ext TB Standing Exercise Name HEP review Side bilateral Equipment Used rail Reps/Minutes x10 reps each direction Comments no pain band walk Standing Exercise Name reviewed HEP f/b/side stepping Resistance TB #2 loop Reps/Minutes 10 ft x 3laps Comments pain with left eccentric Manual Therapy Treatment Soft Tissue Mobilization STMs Body Location L glut med, pirformis, TFL, ITB Mobilization Type Cross-Friction,Myofascial Release,Sustained Pressure Intensity/Depth Moderate Body Position Sidelying Comments reduction in tone after STM Joint Mobilizations LLE long axis traction Joint L hip Direction inferior manual Grade II Body Position Supine Reps/Duration 3x 30 sec hold Self-Care/Home Management Treatment Education Patient Education Home Exercise Program,Posture PT-OP-T Assessment and Plan Start: 05/18/21 15:14 Freq: Status: Active Protocol: Document 06/15/21 09:45 AW (Rec: 06/15/21 12:07 AW [email or web address]) Physical Therapy Assessment Goals Five Impairment lifting Short Term Goal (STG) Pt will demonstrate quality body mechanics to lift objects of 10# without increase in baseline pain. STG Duration 6 weeks - 06/29/21 Administrative Judge Goal (LTG) Pt will demonstrate quality body mechanics to lift objects of 20# without increase in baseline pain to promote readiness for return to work. LTG Duration 12 weeks - 08/10/21 Four Impairment sitting tolerance Short Term Goal (STG) Pt will sit 45 minutes or greater without increase in baseline pain. 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 STG Duration 6 weeks - 06/29/21 Administrative Judge Goal (LTG) Pt will score 30% or less on Modified Oswestry for improved ability to manage daily tasks and return to work. LTG Duration 12 weeks - 08/10/21 Two Impairment self-care Short Term Goal (STG) Pt will be able to complete lower body dressing tasks with 3/10 or less pain. STG Duration 6 weeks - 06/29/21 Alf Goal (LTG) Pt will complete all ADL's with 1/10 or less pain. LTG Duration 12 weeks - 08/10/21 One Impairment lacks appropriate HEP Short Term Goal (STG) Pt will be independent with HEP to support therapy services provided in clinic. STG Duration 6 weeks - 06/29/21 Administrative Judge Goal (LTG) Pt will return to recreational activity of choice such as swimming or cycling LTG Duration 12 weeks - 08/10/21 Progress Towards Goals Progress Towards Goals Slow Progress due to Medical Issues,Slow Progress - Other Progress Comments Pt has improve lumbar ROM minimally and no longer complains of constant leg pain below the hip. Pain is more localized to left hip at this time but not improving with treatment. Assessment Summary Assessment Treatment focused on manual therapy for left lumbar stenosis. Added repeated extension-based exercises to test response. They did not improve or exacerbate pt's symptoms. Pt to do prone press up and standing hip extension until next visit to assess response. Pt is no longer complaining of constant LLE pain below the hip but states his localized hip pain is not improving. Limb lengths are not appreciably different in supine. Left iliac crest slightly lower than right in standing. Physical Therapy Plan Frequency and Duration Frequency of Treatment 2x/Week Duration of Treatment 12 weeks Plan of Care Start Date 05/18/21 Plan of Care End Date 08/10/21 Therapeutic Interventions Therapeutic Interventions Aquatic Therapy,Balance Training,Gait Training,Home Exercise Program,Joint Mobilizations,Manual Therapy, Neuromuscular Re-education, Patient/Caregiver Education, Self-Care/Home Management, Sensory Integration,Soft Tissue Mobilization,Taping, Therapeutic Activities, Therapeutic Exercises Modalities Cold Pack/Ice Massage,Electric Stimulation,Hot Packs Next Visit Focus/Plan Next Note Type Treatment Note Next Visit Plan Assess response to repeated extension. Continue manual therapy, gentle lumbar ROM and hip strengthening in supported and standing position; frequent changes in position for pt comfort
--- NOTE | 2021-06-21 08:57 | PT.OTN ---
Current Diagnoses Radiculopathy, lumbar region (06/21/21) Physical Therapy Treatment Note PT-OP-A Visit Information Start: 05/18/21 15:14 Freq: Status: Active Protocol: Document 06/21/21 08:17 SP (Rec: 06/21/21 09:03 SP [id number]) Out-Patient Physical Therapy Visit Information Visit Information Visit Type Treatment Note Visit Note Pt required needed to leave early due to need get back to work. 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 At time of evaluation, he had not been to work in three weeks. Pain is a near- constant 4/10 but easily climbs to 7/10. He complains of left leg weakness and states he feels paranoid about increasing that pain. He is now unable to complete a grocery shopping trip due to left leg and low back pain. He had THU at unknown level about two weeks ago but experienced no relief. He has prescriptions for gabapentin and meloxicam and flexeril. He has tried topical and oral CBD. Nothing has relieved his pain. Barely able to walk around [employer]. Normally able to lift as much as needed at work. Prior Treatments and Tests MRI 04/13/21: Moderate spinal canal stenosis at L2-L3 and L4 -L5 with crowding and possible compression of the descending nerve roots at these levels. Severe left and moderate right neural foraminal stenosis at L4-L5 with flattening of the bilateral exiting L4 nerve roots. Correlate for any corresponding L4 radicular symptoms. Future Testing and Treatments Planned Follow up with ALYSON Rider - next week. Treatment Goals Patient/Caregiver Goals Return to work to include lifting, sitting, driving. Recreationally, pt would like to return to swimming, road cycling, MTB. He would like to be able to sleep without pain interrupting. 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 Able to sit and drive up to five hours without pain. Baseline Function- Recreation/Hobbies Participates in swimming, road cycling, and mountain biking. Current Functional Impairments (Reported) Functional Limitations- ADL's Mild to moderate difficulty with lower body dressing tasks . Functional Limitations- Work/School Unable to lift. Unable to sit or drive longer than 10 minutes. Functional Limitations- Recreation/ Unable to swim or bike. Hobbies Functional Limitations- Other Painful sleep Personal Factors Other Personal Factors That May Effect (+) Prior level of activity Therapy/Recovery PT-OP-C Subjective Start: 05/18/21 15:14 Freq: Status: Active Protocol: Document 06/21/21 08:17 SP (Rec: 06/21/21 09:03 SP [id number]) OP-PT Subjective Patient Comments Patient Comments Pt stated found relief with mobilizations did last tx. He continues to be frustrated and constant annoying pain in L hip with every step. Wants to get back to normal outdoor activitiy. Is afraid of pain and stability with each step takes. He noted the bottom of L shoe less hernandez over ball of foot compared to R. Pt stated the HEP hurts when does this. Patient Reported Progress Same PT-OP-D Balance Start: 05/18/21 15:14 Freq: Status: Active Protocol: Document 05/18/21 16:00 AW (Rec: 05/18/21 16:32 AW [email or web address]) OP-PT Balance Assessment Sitting Balance Static Sitting Balance Ability Good Dynamic Sitting Balance Ability Good Standing Balance Static Standing Balance Ability Fair Dynamic Standing Balance Ability Fair Device Used none Standing Balance Comments SLS: R 5 sec, L <3 sec on multiple trials Sommer Fall Scale Copyright Permission PT-OP-F Manual Assessment Start: 05/18/21 15:14 Freq: Status: Active Protocol: Document 05/18/21 16:00 AW (Rec: 05/18/21 16:32 AW [email or web address]) Manual Assessments Soft Tissue Assessment Soft Tissue Mobility Assessment Pt is tender to palpation at left groin, lateral and posterior hip. Joint Mobility Assessment Joint Mobility Assessment Lumbar PA's WNL PT-OP-H Neuro Start: 05/18/21 15:14 Freq: Status: Active Protocol: Document 05/18/21 16:00 AW (Rec: 05/18/21 16:32 AW [email or web address]) Sensation Evaluation Comments Summary Comments Light touch and temperature sensation intact. Pt highly reactive to pressure at left groin, lateral and posterior hip. Deep Tendon Reflex & Clonus Assessment Deep Tendon Reflex Bilateral Achilles Deep Tendon Reflex 0 Absent Bilateral Patellar Deep Tendon Reflex 1+ Diminished Bilateral Bicep Deep Tendon Reflex 2+ Normal PT-OP-J Posture/Palpation/Skin Start: 05/18/21 15:14 Freq: Status: Active Protocol: Document 05/18/21 16:00 AW (Rec: 05/18/21 16:32 AW [email or web address]) Posture Evaluation Comments Posture Comments Pt presents with decreased LLE weightbearing due to pain and guarding behaviors. PT-OP-K Range of Motion Start: 05/18/21 15:14 Freq: Status: Active Protocol: Document 05/18/21 16:00 AW (Rec: 05/18/21 16:42 AW [email or web address]) Lumbar Spine Range of Motion Lumbar Spine Active Degrees Testing Position Standing Flexion 70 Extension 20 ROM Limitations Pain Comments R SB: 1.5 above knee joint line. L SB: to knee joint line . B rotation WNL. All lateral flexion and rotation painful but left more affected than right. Hip Goniometric Range of Motion Hip ROM Limitations Comments All hip ROM WNL except left hip internal rotation severely limited by guarding and pain. PT-OP-M Strength Start: 05/18/21 15:14 Freq: Status: Active Protocol: Document 05/18/21 16:00 AW (Rec: 05/18/21 16:42 AW [email or web address]) Hip Strength Hip Manual Muscle Testing Right Flexion (L2) 5 Normal Extension (S1) 4+ Good+ Abduction 5 Normal External Rotation 5 Normal Internal Rotation 5 Normal Left Flexion (L2) 3- Fair- Extension (S1) 3 Fair Abduction 3 Fair External Rotation 4- Good- Internal Rotation 4 Good Knee Strength Knee Manual Muscle Testing bilateral Flexion (S2) 4+ Good+ Extension (L3) 5 Normal Ankle/Foot Strength Ankle and Foot Manual Muscle Testing bilateral Comments R DF 5/5. L DF 4+/5 Toe Strength Toe Manual Muscle Testing Great Toe Comments R 5/5. L 4+/5. PT-OP-Q Treatments Start: 05/18/21 15:14 Freq: Status: Active Protocol: Document 06/21/21 08:17 SP (Rec: 06/21/21 09:03 SP [id number]) Therapeutic Exercises Supine Exercises Adalberto stretch Side left Resistance AAROM to tolerance Reps/Minutes 20 Comments Mod support to LLE bridge Supine Exercise Name changed to segmental bridge- reviewed HEP Resistance AROM Reps/Minutes 5 sec hold x 5, 10 sec hold x5 reps Comments cued initiate with PPT and TA fac, slow eccentric pacing for stab- painfree sciatic nerve glide Supine Exercise Name w/ ankle pump Side left Reps/Minutes x10 post bridge Comments cued neutral spine LTR Supine Exercise Name LTR Side bilateral Equipment Used pillow between knees Reps/Minutes x10 Comments pain free range to R, 3/10 no pillows 2/10 w/ pillows Prone Exercises prone press up Prone Exercise Name prone press up Reps/Minutes 30 sec x 5 Comments with lumbar PA's Grade II Standing Exercises LS ext Standing Exercise Name hands on hip, anterior pelvic shift Reps/Minutes hold 5 sec x3 Comments added today- good response modified press up Standing Exercise Name modified press up Equipment Used wall Reps/Minutes x8 Comments unclear response Manual Therapy Treatment Soft Tissue Mobilization STMs Body Location L glut med, pirformis, TFL, ITB Mobilization Type Cross-Friction,Myofascial Release,Sustained Pressure Intensity/Depth Moderate Body Position Sidelying Comments reduction in tone after STM Joint Mobilizations LLE long axis traction Joint L hip Direction inferior manual Grade II Body Position Supine Reps/Duration 3x 30 sec hold PT-OP-T Assessment and Plan Start: 05/18/21 15:14 Freq: Status: Active Protocol: Document 06/21/21 08:17 SP (Rec: 06/21/21 09:03 SP [id number]) Physical Therapy Assessment Goals Five Impairment lifting Short Term Goal (STG) Pt will demonstrate quality body mechanics to lift objects of 10# without increase in baseline pain. STG Duration 6 weeks - 06/29/21 Concrete Floater Goal (LTG) Pt will demonstrate quality body mechanics to lift objects of 20# without increase in baseline pain to promote readiness for return to work. LTG Duration 12 weeks - 08/10/21 Four Impairment sitting tolerance Short Term Goal (STG) Pt will sit 45 minutes or greater without increase in baseline pain. 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 STG Duration 6 weeks - 06/29/21 Concrete Floater Goal (LTG) Pt will score 30% or less on Modified Oswestry for improved ability to manage daily tasks and return to work. LTG Duration 12 weeks - 08/10/21 Two Impairment self-care Short Term Goal (STG) Pt will be able to complete lower body dressing tasks with 3/10 or less pain. STG Duration 6 weeks - 06/29/21 Concrete Floater Goal (LTG) Pt will complete all ADL's with 1/10 or less pain. LTG Duration 12 weeks - 08/10/21 One Impairment lacks appropriate HEP Short Term Goal (STG) Pt will be independent with HEP to support therapy services provided in clinic. STG Duration 6 weeks - 06/29/21 Half-Way Goal (LTG) Pt will return to recreational activity of choice such as swimming or cycling LTG Duration 12 weeks - 08/10/21 Assessment Summary Assessment Tx continued to focus on manual for L Lumbar stenosis and extension based ther ex with almost pain free reported prone, supine and standing. Pt continues to have pain when WBs into LLE immediately. Pt states is going to stop by his orthopedic and ask if there can be further assessment, possible another injection to help with pain relief. MOLDING AND TRIM INSTALLER instructed to continue extension HEP and continue inversion table has at home if give relieving pain to LB and radiation down leg, hasn't been doing lately stated. Physical Therapy Plan Frequency and Duration Frequency of Treatment 2x/Week Duration of Treatment 12 weeks Plan of Care Start Date 05/18/21 Plan of Care End Date 08/10/21 Therapeutic Interventions Therapeutic Interventions Aquatic Therapy,Balance Training,Gait Training,Home Exercise Program,Joint Mobilizations,Manual Therapy, Neuromuscular Re-education, Patient/Caregiver Education, Self-Care/Home Management, Sensory Integration,Soft Tissue Mobilization,Taping, Therapeutic Activities, Therapeutic Exercises Modalities Cold Pack/Ice Massage,Electric Stimulation,Hot Packs Next Visit Focus/Plan Next Note Type Treatment Note Next Visit Plan Assess response to continued repeated extension. POC: Continue manual therapy, gentle lumbar ROM and hip strengthening in supported and standing position; frequent changes in position for pt comfort
--- NOTE | 2021-06-23 09:45 | PT.OTN ---
Current Diagnoses Radiculopathy, lumbar region (06/23/21) Physical Therapy Treatment Note PT-OP-A Visit Information Start: 05/18/21 15:14 Freq: Status: Active Protocol: Document 06/23/21 09:39 AW (Rec: 06/23/21 09:42 AW [id number]) Out-Patient Physical Therapy Visit Information Visit Information Visit Type Treatment Note Visit Start Time 09:00 Visit Stop Time 09:39 Total Visit Minutes 39 Visit Number 9 Number of CHEMISTRY PROFESSOR Visits 0 Evaluation Information Evaluation Date 05/18/21 PT-OP-B Current Condition Start: 05/18/21 15:14 Freq: Status: Active Protocol: Document 05/18/21 16:00 AW (Rec: 05/18/21 16:05 AW [id number]) Current Condition History of Current Condition Onset Date 03/02/21 Current Complaints left groin; low back; left buttock, thigh, leg pain History of Current Condition 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 At time of evaluation, he had not been to work in three weeks. Pain is a near- constant 4/10 but easily climbs to 7/10. He complains of left leg weakness and states he feels paranoid about increasing that pain. He is now unable to complete a grocery shopping trip due to left leg and low back pain. He had THU at unknown level about two weeks ago but experienced no relief. He has prescriptions for gabapentin and meloxicam and flexeril. He has tried topical and oral CBD. Nothing has relieved his pain. Barely able to walk around [employer]. Normally able to lift as much as needed at work. Prior Treatments and Tests MRI 04/13/21: Moderate spinal canal stenosis at L2-L3 and L4 -L5 with crowding and possible compression of the descending nerve roots at these levels. Severe left and moderate right neural foraminal stenosis at L4-L5 with flattening of the bilateral exiting L4 nerve roots. Correlate for any corresponding L4 radicular symptoms. Future Testing and Treatments Planned Follow up with ALYSON - Dr Rider - next week. Treatment Goals Patient/Caregiver Goals Return to work to include lifting, sitting, driving. Recreationally, pt would like to return to swimming, road cycling, MTB. He would like to be able to sleep without pain interrupting. 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 Able to sit and drive up to five hours without pain. Baseline Function- Recreation/Hobbies Participates in swimming, road cycling, and mountain biking. Current Functional Impairments (Reported) Functional Limitations- ADL's Mild to moderate difficulty with lower body dressing tasks . Functional Limitations- Work/School Unable to lift. Unable to sit or drive longer than 10 minutes. Functional Limitations- Recreation/ Unable to swim or bike. Hobbies Functional Limitations- Other Painful sleep Personal Factors Other Personal Factors That May Effect (+) Prior level of activity Therapy/Recovery PT-OP-C Subjective Start: 05/18/21 15:14 Freq: Status: Active Protocol: Document 06/23/21 09:39 AW (Rec: 06/23/21 09:42 AW [id number]) OP-PT Subjective Patient Comments Patient Comments Pt has not been to ortho. Is considering chiropractic. He thinks joint mobs are helpful. Patient Reported Progress Same PT-OP-D Balance Start: 05/18/21 15:14 Freq: Status: Active Protocol: Document 05/18/21 16:00 AW (Rec: 05/18/21 16:32 AW [email or web address]) OP-PT Balance Assessment Sitting Balance Static Sitting Balance Ability Good Dynamic Sitting Balance Ability Good Standing Balance Static Standing Balance Ability Fair Dynamic Standing Balance Ability Fair Device Used none Standing Balance Comments SLS: R 5 sec, L <3 sec on multiple trials Sommer Fall Scale Copyright Permission PT-OP-F Manual Assessment Start: 05/18/21 15:14 Freq: Status: Active Protocol: Document 05/18/21 16:00 AW (Rec: 05/18/21 16:32 AW [email or web address]) Manual Assessments Soft Tissue Assessment Soft Tissue Mobility Assessment Pt is tender to palpation at left groin, lateral and posterior hip. Joint Mobility Assessment Joint Mobility Assessment Lumbar PA's WNL PT-OP-H Neuro Start: 05/18/21 15:14 Freq: Status: Active Protocol: Document 05/18/21 16:00 AW (Rec: 05/18/21 16:32 AW [email or web address]) Sensation Evaluation Comments Summary Comments Light touch and temperature sensation intact. Pt highly reactive to pressure at left groin, lateral and posterior hip. Deep Tendon Reflex & Clonus Assessment Deep Tendon Reflex Bilateral Achilles Deep Tendon Reflex 0 Absent Bilateral Patellar Deep Tendon Reflex 1+ Diminished Bilateral Bicep Deep Tendon Reflex 2+ Normal PT-OP-J Posture/Palpation/Skin Start: 05/18/21 15:14 Freq: Status: Active Protocol: Document 05/18/21 16:00 AW (Rec: 05/18/21 16:32 AW [email or web address]) Posture Evaluation Comments Posture Comments Pt presents with decreased LLE weightbearing due to pain and guarding behaviors. PT-OP-K Range of Motion Start: 05/18/21 15:14 Freq: Status: Active Protocol: Document 05/18/21 16:00 AW (Rec: 05/18/21 16:42 AW [email or web address]) Lumbar Spine Range of Motion Lumbar Spine Active Degrees Testing Position Standing Flexion 70 Extension 20 ROM Limitations Pain Comments R SB: 1.5 above knee joint line. L SB: to knee joint line . B rotation WNL. All lateral flexion and rotation painful but left more affected than right. Hip Goniometric Range of Motion Hip ROM Limitations Comments All hip ROM WNL except left hip internal rotation severely limited by guarding and pain. PT-OP-M Strength Start: 05/18/21 15:14 Freq: Status: Active Protocol: Document 05/18/21 16:00 AW (Rec: 05/18/21 16:42 AW [email or web address]) Hip Strength Hip Manual Muscle Testing Right Flexion (L2) 5 Normal Extension (S1) 4+ Good+ Abduction 5 Normal External Rotation 5 Normal Internal Rotation 5 Normal Left Flexion (L2) 3- Fair- Extension (S1) 3 Fair Abduction 3 Fair External Rotation 4- Good- Internal Rotation 4 Good Knee Strength Knee Manual Muscle Testing bilateral Flexion (S2) 4+ Good+ Extension (L3) 5 Normal Ankle/Foot Strength Ankle and Foot Manual Muscle Testing bilateral Comments R DF 5/5. L DF 4+/5 Toe Strength Toe Manual Muscle Testing Great Toe Comments R 5/5. L 4+/5. PT-OP-Q Treatments Start: 05/18/21 15:14 Freq: Status: Active Protocol: Document 06/23/21 09:39 AW (Rec: 06/23/21 09:42 AW [id number]) Therapeutic Exercises Supine Exercises bridge Supine Exercise Name bridge - segmental Resistance AROM Reps/Minutes 5 SH x 10 Comments cued initiate with PPT and TA fac, slow eccentric pacing for stab- painfree sciatic nerve glide Supine Exercise Name w/ ankle pump Side left Reps/Minutes x10 post bridge Comments cued neutral spine LTR Supine Exercise Name LTR Side bilateral Equipment Used pillow between knees Reps/Minutes x10 Comments pain free range - requires cues Prone Exercises prone press up Prone Exercise Name prone press up Reps/Minutes 30 sec x 5 Comments with lumbar PA's Grade II Sidelying Exercises left lumbar rotation Sidelying Exercise Name left lumbar rotation Equipment Used SL right, LLE fwd off mat, LUE reaching behind Comments combined with manual facet gapping Standing Exercises LS ext Standing Exercise Name hands on hip, anterior pelvic shift Reps/Minutes hold 5 sec x3 Comments reviewed for HEP modified press up Standing Exercise Name modified press up Equipment Used wall Reps/Minutes x8 Comments no pain - added to HEP Manual Therapy Treatment Soft Tissue Mobilization STMs Body Location L glut med, pirformis, TFL, ITB Mobilization Type Cross-Friction,Myofascial Release,Sustained Pressure Intensity/Depth Moderate Body Position Sidelying Comments reduction in tone after STM Joint Mobilizations LLE long axis traction Joint L hip Direction inferior manual Grade II Body Position Supine Reps/Duration 3x 30 sec hold lumbar traction Grade II Body Position Hooklying Reps/Duration 30 x3 Comments no change in symptoms PT-OP-T Assessment and Plan Start: 05/18/21 15:14 Freq: Status: Active Protocol: Document 06/23/21 09:39 AW (Rec: 06/23/21 09:45 AW [id number]) Physical Therapy Assessment Goals Five Impairment lifting Short Term Goal (STG) Pt will demonstrate quality body mechanics to lift objects of 10# without increase in baseline pain. STG Duration 6 weeks - 06/29/21 Long-Term Goal (LTG) Pt will demonstrate quality body mechanics to lift objects of 20# without increase in baseline pain to promote readiness for return to work. LTG Duration 12 weeks - 08/10/21 Four Impairment sitting tolerance Short Term Goal (STG) Pt will sit 45 minutes or greater without increase in baseline pain. 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 STG Duration 6 weeks - 06/29/21 Long-Term Goal (LTG) Pt will score 30% or less on Modified Oswestry for improved ability to manage daily tasks and return to work. LTG Duration 12 weeks - 08/10/21 Two Impairment self-care Short Term Goal (STG) Pt will be able to complete lower body dressing tasks with 3/10 or less pain. STG Duration 6 weeks - 06/29/21 Long-Term Goal (LTG) Pt will complete all ADL's with 1/10 or less pain. LTG Duration 12 weeks - 08/10/21 One Impairment lacks appropriate HEP Short Term Goal (STG) Pt will be independent with HEP to support therapy services provided in clinic. STG Duration 6 weeks - 06/29/21 Long-Term Goal (LTG) Pt will return to recreational activity of choice such as swimming or cycling LTG Duration 12 weeks - 08/10/21 Assessment Summary Assessment Pt's gait less antalgic today. He feels he is benefitting from manual therapy. Resisted exercises causing pain so advised pt to pause for now and focus on extension-based HEP issued today along with stretches and nerve glides. Physical Therapy Plan Frequency and Duration Frequency of Treatment 2x/Week Duration of Treatment 12 weeks Plan of Care Start Date 05/18/21 Plan of Care End Date 08/10/21 Therapeutic Interventions Therapeutic Interventions Aquatic Therapy,Balance Training,Gait Training,Home Exercise Program,Joint Mobilizations,Manual Therapy, Neuromuscular Re-education, Patient/Caregiver Education, Self-Care/Home Management, Sensory Integration,Soft Tissue Mobilization,Taping, Therapeutic Activities, Therapeutic Exercises Modalities Cold Pack/Ice Massage,Electric Stimulation,Hot Packs Next Visit Focus/Plan Next Note Type Treatment Note Next Visit Plan Assess response to continued repeated extension. POC: Continue manual therapy, gentle lumbar ROM and hip strengthening in supported and standing position; frequent changes in position for pt comfort
--- NOTE | 2021-06-29 09:45 | PT.OTN ---
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 At time of evaluation, he had not been to work in three weeks. Pain is a near- constant 4/10 but easily climbs to 7/10. He complains of left leg weakness and states he feels paranoid about increasing that pain. He is now unable to complete a grocery shopping trip due to left leg and low back pain. He had THU at unknown level about two weeks ago but experienced no relief. He has prescriptions for gabapentin and meloxicam and flexeril. He has tried topical and oral CBD. Nothing has relieved his pain. Barely able to walk around [employer]. Normally able to lift as much as needed at work. Prior Treatments and Tests MRI 04/13/21: Moderate spinal canal stenosis at L2-L3 and L4 -L5 with crowding and possible compression of the descending nerve roots at these levels. Severe left and moderate right neural foraminal stenosis at L4-L5 with flattening of the bilateral exiting L4 nerve roots. Correlate for any corresponding L4 radicular symptoms. Future Testing and Treatments Planned Follow up with ALYSON Rider - next week. Treatment Goals Patient/Caregiver Goals Return to work to include lifting, sitting, driving. Recreationally, pt would like to return to swimming, road cycling, MTB. He would like to be able to sleep without pain interrupting. 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 Able to sit and drive up to five hours without pain. Baseline Function- Recreation/Hobbies Participates in swimming, road cycling, and mountain biking. Current Functional Impairments (Reported) Functional Limitations- ADL's Mild to moderate difficulty with lower body dressing tasks . Functional Limitations- Work/School Unable to lift. Unable to sit or drive longer than 10 minutes. Functional Limitations- Recreation/ Unable to swim or bike. Hobbies Functional Limitations- Other Painful sleep Personal Factors Other Personal Factors That May Effect (+) Prior level of activity Therapy/Recovery PT-OP-C Subjective Start: 05/18/21 15:14 Freq: Status: Active Protocol: Document 06/29/21 09:36 AW (Rec: 06/29/21 09:38 AW [email or web address]) OP-PT Subjective Patient Comments Patient Comments Pt says his chiropractor thinks his left his is out of socket. PT-OP-D Balance Start: 05/18/21 15:14 Freq: Status: Active Protocol: Document 05/18/21 16:00 AW (Rec: 05/18/21 16:32 AW [email or web address]) OP-PT Balance Assessment Sitting Balance Static Sitting Balance Ability Good Dynamic Sitting Balance Ability Good Standing Balance Static Standing Balance Ability Fair Dynamic Standing Balance Ability Fair Device Used none Standing Balance Comments SLS: R 5 sec, L <3 sec on multiple trials Sommer Fall Scale Copyright Permission PT-OP-F Manual Assessment Start: 05/18/21 15:14 Freq: Status: Active Protocol: Document 05/18/21 16:00 AW (Rec: 05/18/21 16:32 AW [email or web address]) Manual Assessments Soft Tissue Assessment Soft Tissue Mobility Assessment Pt is tender to palpation at left groin, lateral and posterior hip. Joint Mobility Assessment Joint Mobility Assessment Lumbar PA's WNL PT-OP-H Neuro Start: 05/18/21 15:14 Freq: Status: Active Protocol: Document 05/18/21 16:00 AW (Rec: 05/18/21 16:32 AW [email or web address]) Sensation Evaluation Comments Summary Comments Light touch and temperature sensation intact. Pt highly reactive to pressure at left groin, lateral and posterior hip. Deep Tendon Reflex & Clonus Assessment Deep Tendon Reflex Bilateral Achilles Deep Tendon Reflex 0 Absent Bilateral Patellar Deep Tendon Reflex 1+ Diminished Bilateral Bicep Deep Tendon Reflex 2+ Normal PT-OP-J Posture/Palpation/Skin Start: 05/18/21 15:14 Freq: Status: Active Protocol: Document 05/18/21 16:00 AW (Rec: 05/18/21 16:32 AW [email or web address]) Posture Evaluation Comments Posture Comments Pt presents with decreased LLE weightbearing due to pain and guarding behaviors. PT-OP-K Range of Motion Start: 05/18/21 15:14 Freq: Status: Active Protocol: Document 05/18/21 16:00 AW (Rec: 05/18/21 16:42 AW [email or web address]) Lumbar Spine Range of Motion Lumbar Spine Active Degrees Testing Position Standing Flexion 70 Extension 20 ROM Limitations Pain Comments R SB: 1.5 above knee joint line. L SB: to knee joint line . B rotation WNL. All lateral flexion and rotation painful but left more affected than right. Hip Goniometric Range of Motion Hip ROM Limitations Comments All hip ROM WNL except left hip internal rotation severely limited by guarding and pain. PT-OP-M Strength Start: 05/18/21 15:14 Freq: Status: Active Protocol: Document 05/18/21 16:00 AW (Rec: 05/18/21 16:42 AW [email or web address]) Hip Strength Hip Manual Muscle Testing Right Flexion (L2) 5 Normal Extension (S1) 4+ Good+ Abduction 5 Normal External Rotation 5 Normal Internal Rotation 5 Normal Left Flexion (L2) 3- Fair- Extension (S1) 3 Fair Abduction 3 Fair External Rotation 4- Good- Internal Rotation 4 Good Knee Strength Knee Manual Muscle Testing bilateral Flexion (S2) 4+ Good+ Extension (L3) 5 Normal Ankle/Foot Strength Ankle and Foot Manual Muscle Testing bilateral Comments R DF 5/5. L DF 4+/5 Toe Strength Toe Manual Muscle Testing Great Toe Comments R 5/5. L 4+/5. PT-OP-Q Treatments Start: 05/18/21 15:14 Freq: Status: Active Protocol: Document 06/29/21 09:36 AW (Rec: 06/29/21 09:38 AW [email or web address]) Therapeutic Exercises Supine Exercises sciatic nerve glide Supine Exercise Name w/ ankle pump Side left Reps/Minutes x10 post bridge Comments cued neutral spine LTR Supine Exercise Name LTR Side bilateral Equipment Used pillow between knees Reps/Minutes x10 Comments pain free range - requires cues Sidelying Exercises left lumbar rotation Sidelying Exercise Name left lumbar rotation Equipment Used SL right, LLE fwd off mat, LUE reaching behind Comments combined with manual facet gapping Manual Therapy Treatment Soft Tissue Mobilization STMs Body Location L glut med, pirformis, TFL, ITB Mobilization Type Cross-Friction,Myofascial Release,Sustained Pressure Intensity/Depth Moderate Body Position Sidelying PT-OP-T Assessment and Plan Start: 05/18/21 15:14 Freq: Status: Active Protocol: Document 06/29/21 09:36 AW (Rec: 06/29/21 09:45 AW [email or web address]) Physical Therapy Assessment Goals Five Impairment lifting Short Term Goal (STG) Pt will demonstrate quality body mechanics to lift objects of 10# without increase in baseline pain. 06/29/21 NOT MET STG Duration 6 weeks - 06/29/21 Jail Goal (LTG) Pt will demonstrate quality body mechanics to lift objects of 20# without increase in baseline pain to promote readiness for return to work. LTG Duration 12 weeks - 08/10/21 Four Impairment sitting tolerance Short Term Goal (STG) Pt will sit 45 minutes or greater without increase in baseline pain. 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 STG Duration 6 weeks - 06/29/21 Jail Goal (LTG) Pt will score 30% or less on Modified Oswestry for improved ability to manage daily tasks and return to work. LTG Duration 12 weeks - 08/10/21 Two Impairment self-care Short Term Goal (STG) Pt will be able to complete lower body dressing tasks with 3/10 or less pain. 06/29/21 - PROGRESSING STG Duration 6 weeks - 06/29/21 Jail Goal (LTG) Pt will complete all ADL's with 1/10 or less pain. LTG Duration 12 weeks - 08/10/21 One Impairment lacks appropriate HEP Short Term Goal (STG) Pt will be independent with HEP to support therapy services provided in clinic. 06/29/21 MET STG Duration 6 weeks - 06/29/21 Jail Goal (LTG) Pt will return to recreational activity of choice such as swimming or cycling LTG Duration 12 weeks - 08/10/21 Progress Towards Goals Progress Towards Goals Slow Progress due to Medical Issues,Slow Progress - Other Progress Comments Pt has not responded well to manual therapy or therapeutic exercise. Minimal improvement in pain presentation but gains are transient following therapy. Assessment Summary Assessment Pt reports repeated extension exercises had no effect on pain. Gait is more antalgic today. Pt complains of clunk in left hip which is reproduced with lowering from passive straight leg raise. Left leg is longer in supine. All resisted hip rotation is painful and pt continues to lack internal rotation in supine past neutral due to heavy guarding. PT will contact referring physician for consideration of MRI vs MR arthrogram to rule out labral pathology. Physical Therapy Plan Frequency and Duration Frequency of Treatment 2x/Week Duration of Treatment 12 weeks Plan of Care Start Date 05/18/21 Plan of Care End Date 08/10/21 Therapeutic Interventions Therapeutic Interventions Aquatic Therapy,Balance Training,Gait Training,Home Exercise Program,Joint Mobilizations,Manual Therapy, Neuromuscular Re-education, Patient/Caregiver Education, Self-Care/Home Management, Sensory Integration,Soft Tissue Mobilization,Taping, Therapeutic Activities, Therapeutic Exercises Modalities Cold Pack/Ice Massage,Electric Stimulation,Hot Packs Next Visit Focus/Plan Next Note Type Treatment Note Next Visit Plan POC: Follow up re: imaging for hip. Continue manual therapy, gentle lumbar ROM and hip strengthening in supported and standing position; frequent changes in position for pt comfort
--- NOTE | 2021-07-01 08:20 | PT-OP ANOTE ---
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 Pt arrived today, stated still having pain when WBs through L hip and catching when walks, no change and as much as PT has done to help him is in agreement that will stop therapy until sees base physician and hopeful to get further image assessment and if find benefit to come back will get another referral. Declined tx today due to not really helping. Would like to be on the list for pool therapy in the future, thinks that would help more than land exercises. PT Tameka will write up DC.
--- NOTE | 2021-07-03 16:38 | PT.OPDS ---
Current Diagnoses Radiculopathy, lumbar region (06/29/21) Visit Care Team Role Provider Type Billy Flores DO Attending Provider Non-Staff Family Provider Primary Care Provider Referring Provider Specialty: Family Practice Address: [address] [place] [address], [phone] Email: Visit Number Visit Number 10 Discharge Summary PT-OP-B Current Condition Start: 05/18/21 15:14 Freq: Status: Active Protocol: Document 05/18/21 16:00 AW (Rec: 05/18/21 16:05 AW [id number]) Current Condition History of Current Condition Onset Date 03/02/21 Current Complaints left groin; low back; left buttock, thigh, leg pain History of Current Condition 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 At time of evaluation, he had not been to work in three weeks. Pain is a near- constant 4/10 but easily climbs to 7/10. He complains of left leg weakness and states he feels paranoid about increasing that pain. He is now unable to complete a grocery shopping trip due to left leg and low back pain. He had THU at unknown level about two weeks ago but experienced no relief. He has prescriptions for gabapentin and meloxicam and flexeril. He has tried topical and oral CBD. Nothing has relieved his pain. Barely able to walk around [employer]. Normally able to lift as much as needed at work. Prior Treatments and Tests MRI 04/13/21: Moderate spinal canal stenosis at L2-L3 and L4 -L5 with crowding and possible compression of the descending nerve roots at these levels. Severe left and moderate right neural foraminal stenosis at L4-L5 with flattening of the bilateral exiting L4 nerve roots. Correlate for any corresponding L4 radicular symptoms. Future Testing and Treatments Planned Follow up with [facility] - Dr Rider - next week. Treatment Goals Patient/Caregiver Goals Return to work to include lifting, sitting, driving. Recreationally, pt would like to return to swimming, road cycling, MTB. He would like to be able to sleep without pain interrupting. 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 Able to sit and drive up to five hours without pain. Baseline Function- Recreation/Hobbies Participates in swimming, road cycling, and mountain biking. Current Functional Impairments (Reported) Functional Limitations- ADL's Mild to moderate difficulty with lower body dressing tasks . Functional Limitations- Work/School Unable to lift. Unable to sit or drive longer than 10 minutes. Functional Limitations- Recreation/ Unable to swim or bike. Hobbies Functional Limitations- Other Painful sleep Personal Factors Other Personal Factors That May Effect (+) Prior level of activity Therapy/Recovery PT-OP-C Subjective Start: 05/18/21 15:14 Freq: Status: Active Protocol: Document 06/29/21 09:36 AW (Rec: 06/29/21 09:38 AW [email or web address]) OP-PT Subjective Patient Comments Patient Comments Pt says his chiropractor thinks his left his is out of socket. PT-OP-D Balance Start: 05/18/21 15:14 Freq: Status: Active Protocol: Document 05/18/21 16:00 AW (Rec: 05/18/21 16:32 AW [email or web address]) OP-PT Balance Assessment Sitting Balance Static Sitting Balance Ability Good Dynamic Sitting Balance Ability Good Standing Balance Static Standing Balance Ability Fair Dynamic Standing Balance Ability Fair Device Used none Standing Balance Comments SLS: R 5 sec, L <3 sec on multiple trials Sommer Fall Scale Copyright Permission PT-OP-F Manual Assessment Start: 05/18/21 15:14 Freq: Status: Active Protocol: Document 05/18/21 16:00 AW (Rec: 05/18/21 16:32 AW [email or web address]) Manual Assessments Soft Tissue Assessment Soft Tissue Mobility Assessment Pt is tender to palpation at left groin, lateral and posterior hip. Joint Mobility Assessment Joint Mobility Assessment Lumbar PA's WNL PT-OP-H Neuro Start: 05/18/21 15:14 Freq: Status: Active Protocol: Document 05/18/21 16:00 AW (Rec: 05/18/21 16:32 AW [email or web address]) Sensation Evaluation Comments Summary Comments Light touch and temperature sensation intact. Pt highly reactive to pressure at left groin, lateral and posterior hip. Deep Tendon Reflex & Clonus Assessment Deep Tendon Reflex Bilateral Achilles Deep Tendon Reflex 0 Absent Bilateral Patellar Deep Tendon Reflex 1+ Diminished Bilateral Bicep Deep Tendon Reflex 2+ Normal PT-OP-J Posture/Palpation/Skin Start: 05/18/21 15:14 Freq: Status: Active Protocol: Document 05/18/21 16:00 AW (Rec: 05/18/21 16:32 AW [email or web address]) Posture Evaluation Comments Posture Comments Pt presents with decreased LLE weightbearing due to pain and guarding behaviors. PT-OP-K Range of Motion Start: 05/18/21 15:14 Freq: Status: Active Protocol: Document 05/18/21 16:00 AW (Rec: 05/18/21 16:42 AW [email or web address]) Lumbar Spine Range of Motion Lumbar Spine Active Degrees Testing Position Standing Flexion 70 Extension 20 ROM Limitations Pain Comments R SB: 1.5 above knee joint line. L SB: to knee joint line . B rotation WNL. All lateral flexion and rotation painful but left more affected than right. Hip Goniometric Range of Motion Hip ROM Limitations Comments All hip ROM WNL except left hip internal rotation severely limited by guarding and pain. PT-OP-M Strength Start: 05/18/21 15:14 Freq: Status: Active Protocol: Document 05/18/21 16:00 AW (Rec: 05/18/21 16:42 AW [email or web address]) Hip Strength Hip Manual Muscle Testing Right Flexion (L2) 5 Normal Extension (S1) 4+ Good+ Abduction 5 Normal External Rotation 5 Normal Internal Rotation 5 Normal Left Flexion (L2) 3- Fair- Extension (S1) 3 Fair Abduction 3 Fair External Rotation 4- Good- Internal Rotation 4 Good Knee Strength Knee Manual Muscle Testing bilateral Flexion (S2) 4+ Good+ Extension (L3) 5 Normal Ankle/Foot Strength Ankle and Foot Manual Muscle Testing bilateral Comments R DF 5/5. L DF 4+/5 Toe Strength Toe Manual Muscle Testing Great Toe Comments R 5/5. L 4+/5. PT-OP-T Assessment and Plan Start: 05/18/21 15:14 Freq: Status: Active Protocol: Document 07/03/21 16:37 AW (Rec: 07/03/21 16:38 AW [email or web address]) Physical Therapy Plan Discharge Physical Therapy Discharge Reasons Patient Request Discharge Comments Pt and PT agree that physical therapy has not alleviated left hip pain. PT has sent final treatment note to referring physician with recommendation for additional imaging (MR arthrogram preferred) to rule out labral pathology left hip. Pt understands he will need a new referral to return. Aquatic therapy would be preferred.
== END 2021-07-05 11:37 | disposition home or self-care (01) ==
LOC: PHYS 09:00
PROVIDERS: Family Provider Student in an Organized Health Care Education/Training Program; PCP Student in an Organized Health Care Education/Training Program; Referring Provider Student in an Organized Health Care Education/Training Program; Visit Provider Student in an Organized Health Care Education/Training Program
DX: M54.16 Radiculopathy, lumbar region (principal)
CPT/HCPCS: 97110; 97140; 97161; 97535

== ENCOUNTER → 2021-11-09 07:40 | Outpatient (CLI) | payer OTHER, SELFPAY ==
[2021-11-09 08:31] LABS: Appearance Urine UA CLEAR; Bilirubin Urine UA NEGATIVE (NEGATIVE); Color Urine UA YELLOW; Glucose Urine UA NEGATIVE (Negative); Ketones Urine UA 1+ (NEGATIVE); Leukocyte Esterase Urine UA NEGATIVE (NEGATIVE); Nitrite Urine UA NEGATIVE (Negative); Occult Blood Urine UA TRACE-INTACT (Negative); Protein Urine UA 1+ (Negative); Urobilinogen Urine UA 0.2 E.U./dL (0.2); pH Urine UA 6.5 (4.5-8.0)
[2021-11-09 08:42] LABS: Bacteria Urine Few (2-10); RBC Urine 0-1/HPF (0-5/HPF); Squamous Epithelial Cell Urine 0-1 /HPF (0-5/HPF); WBC Urine 1-5/HPF (0-5/HPF)
[2021-11-09 08:43] LABS: Culture Indicated Urine Cult Not Indicated; Mucus Urine 2+ (Negative)
[2021-11-09 08:46] LABS: Add Manual Diff / Slide Review NO; Basophils Absolute Auto 100 /uL (0-100); Basophils Percent Auto 0.9 % (0-2); Eosinophils Absolute Auto 100 /uL (0-450); Eosinophils Percent Auto 0.7 % (2-4); Hematocrit 45.4 % (41-53); Hemoglobin 15.3 g/dL (13.5-17.5); Hemoglobin A1C% w Est Avg Glu 5.1 % (4.0-6.0); Lymphocytes Absolute Auto 1600 /uL (1100-4500); Lymphocytes Percent Auto 15.3 % (25-40); Mean Corpuscular HGB Conc 33.8 % (30-36); Mean Corpuscular Hemoglobin 32.2 PG (26-34); Mean Corpuscular Volume 95.3 fL (80-100); Monocytes Absolute Auto 600 /uL (0-900); Neutrophils Absolute Auto 7900 /uL (1500-7000); Neutrophils Percent Auto 77.1 % (50-75); Platelet Count 352 X10^3/uL (150-400); Red Blood Cell Count 4.76 X10^6/uL (4.5-5.9); Red Cell Distribution Width 15.2 % (11.6-14.8); White Blood Cell Count 10.2 X10^3/uL (4.5-11.0)
[2021-11-09 08:59] LABS: BUN Creatinine Ratio 15.6 (6-22); Blood Urea Nitrogen 10 mg/dL (9-20); Calcium 9.9 mg/dL (8.4-10.2); Carbon Dioxide 23 mmol/L (22-32); Chloride 104 mmol/L (98-107); Estimated Glomerular Filt Rate > 60.0 mL/min (>60); Glucose 92 mg/dL (70-100); HEMOLYSIS < 15 (0-50); Potassium 4.2 mmol/L (3.4-5.1); Sodium 137 mmol/L (137-145)
== END ==
PROVIDERS: Family Provider Student in an Organized Health Care Education/Training Program; PCP Student in an Organized Health Care Education/Training Program; Referring Provider Orthopaedic Surgery; Visit Provider Orthopaedic Surgery
DX: N39.0 Urinary tract infection, site not specified (principal); Z01.812 Encounter for preprocedural laboratory examination; R73.9 Hyperglycemia, unspecified; Z01.818 Encounter for other preprocedural examination
CPT/HCPCS: 36415; 80048; 81001; 83036; 85025; 93005; 93010

== ENCOUNTER → 2021-11-16 09:43 | Outpatient (CLI) | payer OTHER, SELFPAY ==
[2021-11-16 11:11] LABS: COVID19 -Nasal RAPID Negative (Negative)
== END ==
PROVIDERS: Family Provider Student in an Organized Health Care Education/Training Program; PCP Student in an Organized Health Care Education/Training Program; Referring Provider Family Medicine Sleep Medicine; Visit Provider Family Medicine Sleep Medicine
DX: Z20.822 Contact with and (suspected) exposure to COVID-19 (principal)
CPT/HCPCS: 87635; C9803

== ENCOUNTER → 2021-12-26 09:21 | Outpatient (CLI) | payer OTHER, SELFPAY ==
[2021-12-26 12:03] LABS: COVID19 -Nasal RAPID Negative (Negative)
== END ==
PROVIDERS: Family Provider Student in an Organized Health Care Education/Training Program; PCP Student in an Organized Health Care Education/Training Program; Visit Provider Family Medicine Sleep Medicine
DX: Z20.822 Contact with and (suspected) exposure to COVID-19 (principal)
CPT/HCPCS: 87635; C9803

== ENCOUNTER 2021-12-27 06:03 | Day surgery (SDC) | payer OTHER, SELFPAY ==
[2021-11-10 07:27] VITALS: BMI 28.3
[2021-12-27] VITALS (12 sets, daily range): BP systolic 112–145; BP diastolic 57–95; PULSE 74–117; RESP 10–22; TEMP 36.1–37.2; O2SAT 84–99; BMI 28.3
[2021-12-27] MEDS: LACTATED RINGERS 1,000 ML 42 ML IV ×2 (07:05→10:21)
[2021-12-27] MEDS: VANCOMYCIN 1,000 MG/200 ML PIGGYBACK 200 MG IV (07:17)
[2021-12-27] MEDS: CELECOXIB 200 MG CAPSULE PO (07:25)
[2021-12-27] MEDS: PREGABALIN 75 MG CAPSULE PO (07:26)
[2021-12-27] MEDS: ACETAMINOPHEN 325 MG TABLET 975 MG PO (07:26)
--- NOTE | 2021-12-27 07:38 | PM.PREOP ---
Pre-operative Note COVID-19 COVID-19 status: Negative Criteria for continued procedure: Increased loss of function and Continuing or worsening of significant or severe pain Interval Note History & Physical reviewed/Exam performed by Physician: Yes Changes to H&P: No
--- NOTE | 2021-12-27 07:55 | PM.HP.1 ---
History of Present Illness History of Present Illness Date Patient Seen: 12/27/21 Time Patient Seen: 07:45 Chief complaint: LT CRISTOBAL *OPB* Narrative: Michael continues to note incapacitating left hip pain. It has gotten progressively worse. It has progressed to the extent that he is having difficulty walking and working. He has a remote history of excessive drinking but quit and has been dry. He also notes moderate ongoing left knee pain. He denies any other new problems with his health. Patient History Medical History Depression Hearing loss No significant family history Osteoarthritis Tinnitus Vision disorder Surgical History History of vasectomy Hx of arthroscopy of right knee (1991) Hx of tonsillectomy Family & Social History Social History: household members none Prior Living Arrangements House Safety & Behavioral: Feels Safe in Current Yes Environment Been Physically Hurt or No Threatened By a Person Suicidal Ideation Description None Suicide Plan Description No Plan Tobacco & Substance use: Tobacco type cigarettes Smoking Status Former smoker alcohol intake current alcohol intake frequency a few times a week Substance Use Type marijuana Meds Home Medications and Allergies Home Medications Medication Instructions Recorded Confirmed Type gabapentin 300 mg capsule 300 mg PO DAILY 12/27/21 12/27/21 History Allergies Allergy/AdvReac Type Severity Reaction Status Date / Time No Known Drug Allergies Allergy Verified 12/27/21 06:36 Review of Systems Review of Systems Narrative: Denies recent fevers or chills, does not have substantial problems voiding, does get up maybe once at night. No recent chest pain abdominal pain or lung problems. Exam Vital Signs (past 8 hours): - 12/27/21 06:43 Temperature 98.9 F Pulse Rate 117 H Respiratory Rate 18 Blood Pressure 145/95 H Pulse Oximetry 95 Oxygen Delivery Method Room Air Narrative Exam Narrative: HEENT is benign, neck is supple, lungs are clear, cor regular rate and rhythm, abdomen benign, left hip severe pain with attempted range of motion, skin and intact, restricted range of motion left hip, neurologically intact distally Assessment & Plan Assessment and plan (1) Left hip pain: Status: Acute (2) Status post total hip replacement, left: Status: Acute Plan I have recommended a left total hip arthroplasty. The procedure alternatives risks benefits and complications were discussed in detail. He has incapacitating pain and has been delayed multiple times due to the COVID concerns of the healthcare system. Procedure options risks benefits and complications were discussed. 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 We will work on getting him set up for outpatient therapy. Time Spent With Patient Critical Care time: I spent a total of [] minutes of critical care time on this patient's care today; this time is exclusive of procedural time.
[2021-12-27] MEDS: CEFAZOLIN 2 GM/20 ML SYRINGE IV (08:25)
[2021-12-27] MEDS: TRANEXAMIC ACID 1,000 MG VIAL 2000 MG INJ (08:30)
--- NOTE | 2021-12-27 08:51 | SUR.OPER ---
Supine on padded [place] table with bilateral legs secured in padded positioning boots and suspended in positioning spars, operative leg in traction per surgeon. Head on one pillow. Arm on non-operative side secured on padded armboard <90 degrees abduction. Arm on operative side padded and resting across chest then secured with tape over sheet. Padded perineal post in place per surgeon.
[2021-12-27] MEDS: BUPIVACAINE 0.25% (PF) 60 ML, EPINEPHrine 0.3 MG INJ (08:58)
[2021-12-27] MEDS: BUPIVACAINE LIPOSOME 266 MG/20 ML VIAL INJ (08:58)
--- NOTE | 2021-12-27 11:00 | DI.RAD.S_ITS ---
PROCEDURE: XR HIP W PEL IF DONE LT 2V INDICATIONS: LT ANTERIOR HIP inner op TECHNIQUE: 3 intraoperative fluoroscopic view(s) of the hip acquired. COMPARISON: [facility], CR, XR HIP W PEL IF DONE LT 2V, 03/09/2021, 11:44. FINDINGS: Intraoperative fluoroscopic images shows left total hip arthroplasty in progress. Left hip alignment is anatomic. IMPRESSION: Fluoro guidance was provided intraoperatively for left total hip arthroplasty. Dictated by: Yovani Sims M.D. on 12/27/2021 at 14:08 Approved by: Yovani Sims M.D. on 12/27/2021 at 14:09
--- NOTE | 2021-12-27 11:20 | PM.OP.1 ---
Operative Date/Time/Diagnoses Date of procedure: 12/27/21 Time of procedure: 08:10 Pre-op diagnosis: Left hip AVN and osteoarthritis Post-op diagnosis: same Procedure & Clinicians Procedure: Left total hip arthroplasty anterior approach Same procedure as scheduled: Yes Indications: The patient has had progressively worsening left hip pain with radiographic changes consistent with arthritis. Non-operative management has failed and the patient has requested total hip replacement. The risks, benefits and alternatives to surgery were discussed with the patient prior to proceeding. Risks discussed included, but were not limited to, failure to relieve pain, leg length discrepancy, dislocation, stiffness, infection, nerve damage, deep venous thrombosis, pulmonary embolism, stroke, coma, heart attack, permanent paralysis and , as well as the potential need for eventual revision of the prosthetic. Surgeon: Mariah Chandra Barbed Wire Machine Operator: Brent Oh Anesthesia Type: General and Spinal Operative Notes Findings: Severe left hip avascular necrosis and osteoarthritis, adequate stability, adequate bone Closure Type: primary Specimen(s): none sent Prosthetic devices, grafts, tissues, transplants, or devices: Chandra and Nephew 54 mm R3 cup, size 8 high offset anthology a fit, 36+ 0 Oxinium head Estimated Blood Loss (mL): 250 Procedure in detail: The patient was brought to the operating room. Patient was carefully positioned in the supine position. Time-out was performed and antibiotics were given. Anesthesia was induced. He was positioned in the on the table in order to allow hyperextension of the hip. The left lower extremity was prepped and draped in a standard sterile fashion. An anterior left hip incision was made 1 fingerbreadth lateral to the anterior superior iliac spine and extended distally towards the greater trochanter. Dissection was carried out through skin and subcutaneous tissues. Superficial hemostasis was achieved. The fascia over the tensor fascia papito was defined and incised with a knife. It was fairly densely adherent to the sartorius. Meticulous attention was directed at further defining the plane. He had a very large tensor. It was meticulously protected and mobilized. Allis clamps were used to grasp the fascia. Tensor fascia papito was retracted laterally. There was moderate adhesions and combination of the cautery and werewolf was used to carefully free the tensor from the underlying and anterior aspect of the greater trochanter. Gelpi retractor was placed. Dissection was carried out down along the neck. The circumflex vessels were carefully identified and cauterized with the Aqua Mantis. There was good visualization of the femoral neck. A Cobra was placed superior to the neck and the gluteus fibers were carefully stripped from that superior aspect of the capsule. A 2nd retractor was placed along the inferior aspect of the neck. The rectus insertion along the capsule was partially released. A 3rd retractor that was then gently placed over the rim of the acetabulum under the rectus. Capsule was carefully incised and released from the intertrochanteric line circumferentially superior to the mid sagittal line and inferiorly to the mid sagittal line until the lesser trochanter was palpable. A tag stitch was placed both in the superior and inferior limb of the capsular insertion. Along the acetabulum capsule was also released up to the mid sagittal 12:00 position. A portion of the labrum was resected. A saw was used to perform an osteotomy at the level of the intertrochanteric line and the junction of the superior femoral neck leaving approximately 1 finger breath of residual inferior neck above the lesser trochanter. A 2nd cut was made along the femoral neck at the base of the head and a napkin ring of neck was removed. Corkscrew was placed in the femoral head and the head was removed without difficulty. Retractors were then repositioned around the acetabulum. Residual labrum was resected and additional osteophytes were removed. A reamer that was 4 mm below the templated size was placed by hand in the acetabulum and it was reamed to centralize the acetabulum. It was then reamed up to 2 under the templated size and fluoroscopy was brought in to confirm the position of the reaming and depth of reaming. I reamed 1 under the anticipated size and touched the rim with line to line reaming. A trial cup was placed and noted that it was appropriately sized and fluoroscopy confirmed position and depth. The component was open and inserted without difficulty fluoroscopic imaging was used to confirm that the cup had been adequately seated and was well positioned. It was further stabilized with a single screw. Neutral poly liner was placed. The cup was tested and noted to be stable. Attention was then directed to the femur. The femur was gently hyperextended additional capsular release was performed as needed in order to allow adequate visualization of the proximal femur with elevation of the femur. Patient was placed in a hyperextended slightly adducted position with maximum external rotation. Box osteotome was used to check for any residual neck as well as sclerotic bone along the trochanter. [place] pepper was placed in the femur. Additional broaching was performed. Canal finder was used to determine the alignment of the canal and position. Size 1 broach was placed. The canal was then appropriately broached up to the templated size as long as there was adequate stability of the broach and serial advancement of the broach without excessive impingement. Specific attention was directed at avoiding varus attempting to direct the distal aspect of the broach more anteriorly and avoiding excessive anteversion. Trial reduction showed acceptable range of motion, good stability, no posterior impingement, methodist of leg length and appropriate lateral shuck. I also hyperflexed the hip and checked that there was no impingement anteriorly and there was good stability with flexion, adduction and internal rotation. Marcaine and Exparel were injected. The stem was placed without difficulty. Repeat trial reduction and x-ray showed acceptable overall position, length, and no evidence of the femoral fracture. Final head was placed. Wound was meticulously irrigated with normal saline. The hip was reduced and additional Exparel and Marcaine were injected. The capsule was closed with interrupted nonabsorbable sutures. The fascia of the tensor was closed with interrupted and running Vicryl. No drain was placed. Any tensor fascia papito muscle that appeared to be contused or injured which was a minimal amount was carefully resected. Capsule around the tensor was injected with Exparel and Marcaine. The skin was closed with barbed stitches for the subcutaneous tissue and skin. We also used surgical glue. The wound was dressed sterilely. Brief Betadine soak was also used and was meticulously irrigated with normal saline. Patient was transferred to recovery room in satisfactory condition. Complications: none Post-operative Condition: stable Disposition: Acute Care Plan for aftercare: The patient will be maintained on a standard total hip replacement protocol with weight bearing as tolerated and anterior hip precautions. The patient will receive Aspirin and sequential compression devices for DVT prophylaxis. The patient will be discharged home when safe for the home environment.
--- NOTE | 2021-12-27 12:01 | DI.RAD.S_ITS ---
PROCEDURE: XR HIP W PEL IF DONE LT 2V INDICATIONS: ANT LEFT HIP POST OP TECHNIQUE: AP pelvis and lateral view of the left hip acquired. COMPARISON: None. FINDINGS: Bones: Patient is status post left hip arthroplasty, with hardware components in expected positions. The hip joint appears congruent. The visualized bony structures appear intact. Soft tissues: Overlying postoperative changes are noted. No suspicious soft tissue densities. IMPRESSION: Expected postsurgical change for left hip arthroplasty. Dictated by: Dang Grey MD, PhD on 12/27/2021 at 18:32 Approved by: Dang Grey MD, PhD on 12/27/2021 at 18:32
[2021-12-27] MEDS: LACTATED RINGERS 1,000 ML 125 ML IV (13:30)
[2021-12-27] MEDS: IBUPROFEN 400 MG TABLET PO (13:30)
--- NOTE | 2021-12-27 14:25 | PT.IIE ---
Current Diagnoses Unilateral post-traumatic osteoarthritis, left hip (12/27/21) Pain in left hip (12/27/21) Presence of left artificial hip joint (12/27/21) Surgery Performed Operation Date: 12/27/21 07:45 Actual Procedures p Total Hip Arthroplasty/Anterior Approach(Left) - Mariah Chandra MD Medical History (Last Reviewed 12/27/21 @ 07:57 by Mariah Chandra MD) Depression Hearing loss No significant family history Osteoarthritis Tinnitus Vision disorder Physical Therapy Inpatient Evaluation/Re-Eval M1 PT/OT-IP Prior Functional Status Start: 12/27/21 15:43 Freq: NEEDED Status: Active Protocol: Document 12/27/21 14:25 AB (Rec: 12/27/21 16:03 AB [id number]) Medical Review Prior Functional Status Medical History Reviewed Yes Communication able to make needs known Mobility and Gait pt stated that he is independent with all mobilities and ambulation without AD Social History Household Members significant other Living Arrangements House Number of Floors (Floors) 3 or More Floors Number of Stairs To Enter/Railing? 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 PT-IP Current Condition Start: 12/27/21 15:43 Freq: NEEDED Status: Active Protocol: Document 12/27/21 14:25 AB (Rec: 12/27/21 16:03 AB [email or web address]) Physical Therapy Current Condition Current Condition Evaluation Date 12/27/21 Treatment Diagnosis s/p L CRISTOBAL anterior approach; difficulty in walking Onset Date 12/27/21 M3 PT-IP Subjective Start: 12/27/21 15:43 Freq: NEEDED Status: Active Protocol: Document 12/27/21 14:25 AB (Rec: 12/27/21 16:03 AB [id number]) Subjective Physical Therapy Visit Type Type Initial Evaluation Visit Start Time 14:25 Visit Stop Time 15:35 Total Visit Minutes 70 Number of MANAGER PERFORMANCE IMPROVEMENT Visits 0 Physical Therapy Visit Comments Patient Comments pt stated that he is going home today; stated that he wants to be home before the anesthesia wears off that he is going to have pain and will be harder for him to go home when pain starts; educated pt on safety and pain management Therapy Pain Assessment Pain Present Pain Present Denied Pain M4 PT-IP Mobility and Gait Start: 12/27/21 15:43 Freq: NEEDED Status: Active Protocol: Document 12/27/21 14:25 AB (Rec: 12/27/21 16:03 AB [id number]) PT-Bed Mobility Assessment Supine to Sit Supine to Sit Standby Assistance Sit to Supine Sit to Supine Standby Assistance PT-Transfer Assessment Sit to and From Stand Sit to and from Stand Contact Guard Assistance, Minimal Assistance,1 Person Assistance,Use of Upper Extremities Equipment Transfer Assistive Device Gait Belt,Front Wheeled Walker Orthotic/Prosthetic Devices or Brace: No Transfers Transfer Destination Toilet Transfer Technique ambulated Transfer Ability Level of Assist Contact Guard Assistance, Minimal Assistance,1 Person Assistance,Use of Upper Extremities Comments Mobility Comments pt in room with girlfriend who will assist pt. pt is very eager to go home. educated pt on safety. educated pt and spouse on anterior hip precautions. pt requesting to use the toilet. BP: 129/85. completed supine to sit SBA. BP: 130/78. sit to stand CGA to min A. ambulated to the toilet using FWW CGA to min A and cues. slight L knee giving out in lat stance and educated on quads activation. able to stand using FWW for support while using the toilet min A. pt ambulated out to sit on chair using FWW CGA to min A. educated GF regarding use of safety belt and how to assist pt. GF was able to put safety belt on and assisted pt with sit to stand from chair CGA to min A and ambulated pt in room using FWW CGA to min A. pt rested on EOB. pt c/o feeling sweaty. BP: 129/95. pt agreed to do stairs. ambulated in the hallway with GF assisting and pt completed ~ 75 ft using FWW CGA to min A and cues provided by GF for safety. pt sat on w/c. educated pt and spouse on stair climbing techniques. spouse assisted pt with stair climbing min A. intially requiring assist and cues from PT but after first set, pt and GF was able to complete. pt can be impulsive. pt assisted back to his room. completed sit to supine SBA and cues for safety. educated pt regarding safety, slowing down and reminders regarding hip precautions. pt then requested to use the toilet. GF assisted pt with bed mobility and toilet transfer using FWW. pt went back to bed. positioned pt in bed. call light and table placed within reach. nurse informed. Gait Assessment Gait Gait Assistance Required: Contact Guard Assist,Minimum Assistance Distance (Feet) 75 Able to Maintain Weight Bearing Status Yes During Gait Assistive Devices Assistive Device Gait Belt,Front Wheeled Walker Orthotic/Prosthetic Devices or Brace: No Gait Deviations General Gait Pattern Antalgic Factors Limiting Gait Function Factors Limiting Gait Function Decreased Activity Tolerance, Decreased Strength,Poor Balance,Poor Safety Awareness Stair Climbing Assessment Evaluation Level of Assist On Stairs Minimal Assistance Devices Stair Climbing Assistive Devices Left Railing,Right Railing Technique/Endurance Stair Climbing Technique Step to Step Number of Steps Climbed 3 Query Text: Stair Climbing Set # Repetitions (reps) 3 Comments Stair Climbing Comments pls refer to mobility section for details PT-Balance Assessment Sitting Balance and Reactions Static Sitting Balance Ability Good Dynamic Sitting Balance Ability Good Standing Balance and Reactions Static Standing Balance Ability Fair Dynamic Standing Balance Ability Fair Device Used FWW M5 PT-IP Objective Assessments Start: 12/27/21 15:43 Freq: NEEDED Status: Active Protocol: Document 12/27/21 14:25 AB (Rec: 12/27/21 16:03 AB [id number]) Orientation Orientation/Cognition Level of Alertness Alert Orientation Name,Place,Situation Safety Awareness Decreased Safety Awareness Memory Description No Deficits Noted Gross Range of Motion Lower Extremity ROM Assessment Within Functional Limits Strength Lower Extremity Strength Assessment Left Impaired Hip 3+/5 Knee 4-/5 Coordination Assessment Gross Coordination Gross Coordination WNL Sensation Assessment Sensation Gross Sensation WNL Muscle Tone Muscle Tone WNL Yes M6 PT-IP Treatment Start: 12/27/21 15:43 Freq: NEEDED Status: Active Protocol: Document 12/27/21 14:25 AB (Rec: 12/27/21 16:03 AB [id number]) Physical Therapy Treatment Education Education Provided Precautions,Weight Bearing Status,Post-Op Packet,Safety M7 PT-IP Assessment and Plan Start: 12/27/21 15:43 Freq: NEEDED Status: Active Protocol: Document 12/27/21 14:25 AB (Rec: 12/27/21 16:03 AB [id number]) PT Summary Assessment and Plan Potential Rehabilitation Potential Good Status of Condition at Evaluation Stable Summary Impairments Pain,ROM,Strength,Balance, Coordination,Sensation,Tone, Cognition,Bed Mobility, Transfers,Gait,Activity Tolerance Assessment Summary Pt s/o L CRISTOBAL anterior approach . Pt is very eager to go home and can be impulsive. educated pt regarding safety and hip precautions. caregiver training conducted and spouse was able to assist pt. pt currently does not c/o pain. will continue to assess. Goals Bed Mobility Goal Independent Transfer Goal Independent,Front Wheeled Walker Gait Goal Independent,Front Wheel Walker Gait Distance 250 Other Goals up/down 13 steps B rails mod I Days to Meet Goals 5 Frequency of Treatment Frequency Of Treatment Twice a Day Treatment Plan Physical Therapy Treatment Plan Bed Mobility Training,Transfer Training,Gait Training, Therapeutic Exercise,Balance Retraining,Post Op Education, Discharge Planning,Hot or Cold Pack,Neuromuscular Re-ed, Coordination Retraining,Manual Therapy Precautions Anterior Hip Precautions No Hip Extension,No Hip External Rotation Weight Bearing Status Weight Bearing Status Weight Bear as Tolerated Allowed Weight Bearing Amount (enter % LLE WBAT or #) (%) Recommendations To Nursing Amount of Assist Needed 1 Person Assist Discharge Recommendations PT Discharge Recommendations Home with Assistance, Outpatient PT Transportation Needs at Discharge Private Vehicle
[2021-12-27] MEDS: ACETAMINOPHEN 325 MG TABLET 650 MG PO (14:31)
--- NOTE | 2021-12-27 16:39 | PC.NURSE ---
Patient worked with physical therapy and is very eager for discharge to home. Dr. Chandra notified that he has voided and ambulated. Up to see patient and enter discharge orders. Ashley JIMENES.
--- NOTE | 2021-12-27 17:21 | PC.NURSE ---
Discharge instructions reviewed with patient, he states understanding and has no further questions or concerns at this time. States he has follow up appointment scheduled. Instructed to call surgeons office for questions or concerns, instructed to seek emergent care for emergency. IV dc'd intact. Aquacel dressing remains CDI. Education on fall precautions re enforced. Patient escorted out via wheelchair with all his belongings to discharge to home with his .
== END 2021-12-27 17:24 | disposition home or self-care (01) ==
LOC: OR 12:35 → AC 12:35
PROVIDERS: Family Provider Student in an Organized Health Care Education/Training Program; PCP Student in an Organized Health Care Education/Training Program; Referring Provider Orthopaedic Surgery; Visit Provider Orthopaedic Surgery
PROC: (CPT 27130; principal; 2021-12-27 07:45)
DX: M16.12 Unilateral primary osteoarthritis, left hip (principal); M87.9 Osteonecrosis, unspecified
CPT/HCPCS: 27130; 73502; 76000; 97161; 97530; C1776; C9290; J0171; J0690; J1100; J2250; J2274; J2405; J2704; J3010

== ENCOUNTER 2022-06-23 13:00 | Emergency (ER) | payer OTHER, SELFPAY ==
[2021-12-27 13:40] VITALS: BMI 28.3
[2022-06-23 13:06] VITALS: BP 135/97; PULSE 104; RESP 19; TEMP 37.1; O2SAT 94; BMI 29.0
--- NOTE | 2022-06-23 13:49 | ED_ITS ---
HPI - Animal Bite <Lenny Saleh PA-C - Last Filed: 06/23/22 14:52> General Chief Complaint: Animal Bite Stated Complaint: bite lower lip Time Seen by Provider: 06/23/22 13:24 Source: patient Mode of arrival: Family Vehicle History of Present Illness HPI narrative: Patient is a 57-year-old male who presents to the emergency room today with complaint of dog bite to his right lower lip. Patient states this happened about 2 hours ago. 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 States the neighbor dog is vaccinated and he has no concerns with rabies in regard to the dog. But wants to hold on a tetanus vaccination at this time. His only concern now is getting home and resting. No concerns of pain and take ibuprofen he arrives at home. Related Data Previous Rx's Medication Instructions Recorded amoxicillin 875 mg-potassium 1 tab PO BID #14 tabs 06/23/22 clavulanate 125 mg tablet Allergies Allergy/AdvReac Type Severity Reaction Status Date / Time No Known Drug Allergies Allergy Verified 06/23/22 13:06 Review of Systems <Lenny Saleh PA-C - Last Filed: 06/23/22 14:52> Review of Systems Narrative: R.O.S.: General: No fever, chills or fatigue. Cardiovascular: No chest pain or palpitations Respiratory: No S.O.B. HEENT: No congestion, ear pain, rhinorrhea, sore throat or tinnitus Gastrointestinal: No nausea or vomiting Skin: No rash or associated abnormalities Neurological: Awake, alert and in not apparent distress. No Headaches, changes in vision or other related neurological concerns. Patient History <Lenny Saleh PA-C - Last Filed: 06/23/22 14:52> Social History Smoking Status: Current every day smoker Smoking Status: Current every day smoker tobacco type: cigarettes alcohol intake frequency: 0-2 drinks per day Substance Use Type: marijuana Exam <Lenny Saleh PA-C - Last Filed: 06/23/22 14:52> Narrative Exam Narrative: Physical Exam: ? General: normal appearance, well developed, well nourished, alert, and awake. Not in acute distress. ? Head: Normocephalic, no lesions. Chest: Lungs CTAB, no rales, rhonchi or wheezes. ?? Heart: RRR, no murmurs, rubs or gallops. Eyes: PERRLA, EOM's full, conjunctivae clear. ? Neuro: Physiological, no localizing findings, CN3-12 intact. ?? Extremities: Warm, well perfused, FROM, no deformities, no edema. ?? Skin: Patient has an avulsed skin area to the right lower lip proximal to the vermilion border. Avulsed area extends past the epidermis into the dermal area. The avulsed area is about 2.5 cm in width and 2 cm in vertical length. The area has an even images with moderate bleeding at this time. PSYCHIATRIC: The mood is good, no blunted affect. Speech is clear. Thought process is linear, thought content is appropriate. The voice is without significant inflection. Initial Vital Signs Initial Vital Signs: Vital Signs Temperature 98.8 F 06/23/22 13:06 Pulse Rate 104 H 06/23/22 13:06 Respiratory Rate 19 06/23/22 13:06 Blood Pressure 135/97 H 06/23/22 13:06 Pulse Oximetry 94 06/23/22 13:06 Oxygen Delivery Method 06/23/22 13:06 <DO Boby Dejesus Last Filed: 06/24/22 08:56> Initial Vital Signs Initial Vital Signs: Vital Signs Temperature 98.8 F 06/23/22 13:06 Pulse Rate 104 H 06/23/22 13:06 Respiratory Rate 19 06/23/22 13:06 Blood Pressure 135/97 H 06/23/22 13:06 Pulse Oximetry 94 06/23/22 13:06 Oxygen Delivery Method 06/23/22 13:06 Course <Lenny Saleh PA-C - Last Filed: 06/23/22 14:52> Orders Ordered: ED Orders 06/23/22 13:54 XR facial bones <3V Stat Vital Signs Vital signs: Vital Signs - 8 hr 06/23/22 13:06 Temperature 98.8 F Pulse Rate 104 H Respiratory Rate 19 Blood Pressure 135/97 H Pulse Oximetry 94 Oxygen Delivery Method Room Air <DO Boby Dejesus Last Filed: 06/24/22 08:56> Orders Ordered: ED Orders 06/23/22 13:54 XR facial bones <3V Stat Vital Signs Vital signs: Vital Signs - 8 hr 06/23/22 13:06 Temperature 98.8 F Pulse Rate 104 H Respiratory Rate 19 Blood Pressure 135/97 H Pulse Oximetry 94 Oxygen Delivery Method Room Air MDM - Animal Bite <Lenny Saleh PA-C - Last Filed: 06/23/22 14:52> Imaging Data X-ray face: Radiologist's Impression: PROCEDURE:? XR FACIAL BONES <3V ? INDICATIONS:? Rule out foreign body to dog bite to right lower lip ? TECHNIQUE:? 3 views of the facial bones were acquired.? ? COMPARISON:? None. ? FINDINGS:? ? Sinuses:? Visualized sinuses demonstrate no air-fluid levels or mucosal thickening.? ? Bones:? No fractures.? No suspicious bony lesions.? Orbital rims and zygomatic arches appear intact.? ? Soft tissues:? No suspicious soft tissue densities.? ? IMPRESSION:? No radiopaque foreign body. ? ? Dictated by: Yan Reis M.D. on 06/23/2022 at 14:28 ? ? Approved by: Yan Reis M.D. on 06/23/2022 at 14:33 ? MDM Narrative Medical decision making narrative: Patient is a 57-year-old male who presents to the emergency room today with complaint of a dog bite to the right lower lip. This happened about 2 hours ago and patient has very minimal complaints of pain patient also does not appear to be concerned about the cosmetic issue involving a bite. The bite is an avulsion extends through the epidermis into the dermal area. Three-view x-ray was ordered to rule out foreign body. Patient left the Emergency room before the X- ray was done. This provider also has a call into Dr. Salcedo and ENT to discuss plans. The avulsed area is very proximal to the vermilion border the extent of the injury does not appears to be repairable beer suture insertion without significant cosmetic concerns. Contacted on-Call ENTKARISSA at Dr Matos office and forward him pictures. After receipt of photos and consult with the surgeons, KARISSA Mackey recommends soak the area in Betadine and use polysporine ointment for 2 weeks. Pt to then f/u with ENT for evaluation of a possible cosmetic revision. KARISSA Mackey was notified that the patient left emergency room today against medical advise. [facility], [place], operated by [facility] ENT office will reach out to the patient and informed the patient his antibiotics have been sent to [facility] in [place]. NOTE: Pt left the emergency room against medical advise. Discharge Plan Departure Patient Disposition: Home Clinical Impression: Bite by animal Instructions: DI for Animal Bites Activity Restrictions/Additional Instructions: *You have been diagnosed with [dog bite 3-year-old right lower lip.] Your be referred to [facility] ENT and I have ordered antibiotics for you to have been sent to [facility] on [address] [place]. *What to do: *Please continue to take your regular medicines as ordered. [x] New medication prescriptions sent to your pharmacy: [ ] [ ] New medication written as a paper prescription [ ] No new medications given *Please follow up with your primary care provider in 2-3 days, call for an appointment. Let them know you were seen in the Emergency Department and that we ask that you be seen in follow up. We will electronically transmit a record of today's note if your PCP is in our system *If you do not have a primary care provider please contact the [facility] Resource line at [phone]. They will ask some questions about your medical history and help get you set up with a doctor in the community. *Return to Emergency Department if you should have any new, worsening or concerning symptoms, such as [fever greater than 101 F, shaking chills, worsening pain, persistent vomiting or other bothersome symptoms] Prescriptions: New amoxicillin-pot clavulanate 875-125 mg tablet 1 tab PO BID Qty: 14 0RF Referrals: Billy Flores DO [Primary Care Provider] - Visit Report Forms: Patient Portal/API <Dorothy Eaton DO - Last Filed: 06/24/22 08:56> [facility]ign [facility]: I was immediately available in the department for consultation. Documentation has been reviewed. Case was discussed with myself patient was seen and independently evaluated by myself. Dog is somewhat known to the patient he is unsure of rabies status for the dog but defers starting series at this point, he was encouraged to started was made aware he could started over the next day or 2 if needed. Also recommended have his tetanus vaccination he is unsure if it is up-to-date that he is 72 hours to obtain this. Patient states was not L and I case but does not have any paperwork was encouraged to get this from registration as well. Patient has a large avulsion injury with loss of tissue at the bottom edge vermilion border into the chin. Patient does not appear to have a through and through injury, due to tissue loss is not amenable to closure bleeding was controlled ENT was consulted who does recommend to allow for healing, granulation with wound care and then follow-up with ENT for revision in the future. Patient also had x-ray to evaluate for any foreign body this was not present. Patient left prior to ENT recommendations being shared but and he was going to reach out to the patient's set up follow-up appointment and will share his skin care recommendations with them.
--- NOTE | 2022-06-23 13:54 | DI.RAD.S_ITS ---
PROCEDURE: XR FACIAL BONES <3V INDICATIONS: Rule out foreign body to dog bite to right lower lip TECHNIQUE: 3 views of the facial bones were acquired. COMPARISON: None. FINDINGS: Sinuses: Visualized sinuses demonstrate no air-fluid levels or mucosal thickening. Bones: No fractures. No suspicious bony lesions. Orbital rims and zygomatic arches appear intact. Soft tissues: No suspicious soft tissue densities. IMPRESSION: No radiopaque foreign body. Dictated by: Yan Reis M.D. on 06/23/2022 at 14:28 Approved by: Yan Reis M.D. on 06/23/2022 at 14:33
--- NOTE | 2022-06-23 14:44 | PC.NURSE ---
Patient was witnessed leaving by ED registration staff at 1426. Patient did not notified ED staff of plans to depart and was not discharged by provider.
== END 2022-06-23 14:26 | disposition home or self-care (01) ==
PROVIDERS: Emergency Provider Physician Assistant; PCP Student in an Organized Health Care Education/Training Program
DX: S01.551A Open bite of lip, initial encounter (principal); W54.0XXA Bitten by dog, initial encounter
CPT/HCPCS: 70140; 99283

== ENCOUNTER 2022-07-04 11:19 | Emergency (ER) | payer OTHER, SELFPAY ==
[2021-12-27 13:40] VITALS: BMI 28.3
[2022-07-04 11:20] VITALS: BP 163/99; PULSE 122; RESP 15; TEMP 36.8; O2SAT 96; BMI 29.0
[2022-07-04 12:09] VITALS: BP 128/79; PULSE 104; RESP 16; O2SAT 96
--- NOTE | 2022-07-04 20:06 | ED.ANIMALBIT ---
HPI - Animal Bite <Monica Valdez PA-C - Last Filed: 07/04/22 20:15> General Chief Complaint: Animal Bite Stated Complaint: Dog bite on lip infected Time Seen by Provider: 07/04/22 11:56 Source: patient Mode of arrival: Ambulatory History of Present Illness HPI narrative: 57-year-old male with no significant past medical history presents to the ED for a recheck of a wound sustained from a dog bite. Patient sustained a dog bite on 06/23/22, was seen in the ED for it, was prescribed Augmentin. Patient endorses compliance, is still finishing up his antibiotics. Patient came into the ED today to recheck his wound to ensure that it is healing well without infections. Patient denies warmth, pain, redness, swelling, discharge from the wound. Patient has been applying a topical antibiotic ointment and keeping the wound clean and dry. Patient denies fever, chills, chest pain, shortness of breath, nausea, vomiting. Patient had declined a tetanus update at the last ED visit. Patient again declines a tetanus update today. Patient verbalizes that he understands the risks of not getting a tetanus update. Related Data Home Medications Medication Instructions Recorded Confirmed gabapentin 300 mg capsule 300 mg PO DAILY 12/27/21 12/27/21 Previous Rx's Medication Instructions Recorded acetaminophen 325 mg tablet 650 mg PO TID #90 tabs 12/27/21 aspirin 81 mg tablet,delayed 81 mg PO BID #60 tabs 12/27/21 release ibuprofen 400 mg tablet 400 mg PO Q4HR #90 tabs 12/27/21 oxycodone 5 mg tablet 5 mg PO Q3HR PRN Pain, Moderate 12/27/21 (4-6) #30 tabs amoxicillin 875 mg-potassium 1 tab PO BID #14 tabs 06/23/22 clavulanate 125 mg tablet Allergies Allergy/AdvReac Type Severity Reaction Status Date / Time No Known Drug Allergies Allergy Verified 07/04/22 11:22 Review of Systems <Monica Valdez PA-C - Last Filed: 07/04/22 20:15> Review of Systems ROS Unobtainable: All systems reviewed & are unremarkable except as noted in HPI and below Constitutional Constitutional: Denies chills, Denies fatigue, Denies fever(s), Denies frequent falls, Denies lethargy and Denies weakness Eyes Eyes: Denies change in vision, Denies eye discharge, Denies irritation and Denies loss of vision ENT Ears, Nose, Mouth, and Throat: Denies change in voice, Denies dizziness, Denies neck pain, Denies sore throat and Denies throat swelling Cardiovascular Cardiovascular: Denies chest pain, Denies irregular heart rhythm, Denies lightheadedness, Denies palpitations, Denies dyspnea, Denies dyspnea on exertion and Denies orthopnea Respiratory Respiratory: Denies cough, Denies dyspnea, Denies dyspnea on exertion and Denies wheezing Gastrointestinal Gastrointestinal: Denies abdominal pain, Denies change in bowel habits, Denies diarrhea, Denies nausea and Denies vomiting Genitourinary Genitourinary: Denies hematuria, Denies flank pain, Denies urinary incontinence and Denies urinary urgency Musculoskeletal Musculoskeletal: Denies back pain, Denies muscle weakness, Denies neck pain, Denies numbness and Denies tingling Integumentary/Breasts Skin/Breast: Denies pruritus, Denies erythema, Denies rash and Denies wounds Comments: Wound below the vermilion border of right lower lip Neurologic Neurologic: Denies behavioral changes, Denies confusion, Denies dizziness, Denies frequent falls, Denies loss of vision, Denies numbness, Denies tingling and Denies weakness Psychiatric Psychiatric: Denies anxiety, Denies behavioral changes, Denies confusion, Denies depression, Denies homicidal ideation and Denies suicidal ideation Endocrine Endocrine: Denies fatigue, Denies flushing and Denies palpitations Hematologic/Lymphatic Hematologic/Lymphatic: Denies easy bruising Allergic/Immunologic Allergic/Immunologic: Denies urticaria, Denies throat swelling and Denies wheezing Patient History <Monica Valdez PA-C - Last Filed: 07/04/22 20:15> Medical History Depression Hearing loss No significant family history Osteoarthritis Tinnitus Vision disorder Surgical History History of vasectomy Hx of arthroscopy of right knee (1991) Hx of tonsillectomy Social History (System 06/26/22 @ 07:36 by Zaina Davison) household members: significant other Smoking Status: Current every day smoker alcohol intake: current Smoking Status: Current every day smoker tobacco type: cigarettes alcohol intake frequency: holidays/special occasions only Substance Use Type: marijuana Exam <Monica Valdez PA-C - Last Filed: 07/04/22 20:15> Narrative Exam Narrative: Const General:?cooperative, healthy appearing and comfortable [facility] Head:?normal to inspection Ears:?hearing grossly normal bilaterally Nose:?external nose normal Face and sinus:?normal facial exam and sinuses nontender Mouth:?oral mucosae normal Throat:?posterior oropharynx normal Eyes General:?appearance normal, both eyes and all related structures Neck Neck:?normal visual inspection and no lymphadenopathy noted Resp Effort & Inspection:?normal respiratory effort Auscultation:?clear to auscultation bilaterally Cardio Rate:?regular rate Rhythm:?regular rhythm Integumentary Avulsion Wound below the vermilion border of right lower lip, appears to be healing well. No signs of overt infection including erythema, discharge, warmth, pain, swelling. Neuro General:?patient alert, patient awake and patient oriented x3 Initial Vital Signs Initial Vital Signs: Vital Signs Temperature 98.3 F 07/04/22 11:20 Pulse Rate 122 H 07/04/22 11:20 Respiratory Rate 15 07/04/22 11:20 Blood Pressure 163/99 H 07/04/22 11:20 Pulse Oximetry 96 07/04/22 11:20 Oxygen Delivery Method 07/04/22 11:20 <Bhavin Burgos MD - Last Filed: 08/15/22 08:49> Initial Vital Signs Initial Vital Signs: Vital Signs Temperature 98.3 F 07/04/22 11:20 Pulse Rate 122 H 07/04/22 11:20 Respiratory Rate 15 07/04/22 11:20 Blood Pressure 163/99 H 07/04/22 11:20 Pulse Oximetry 96 07/04/22 11:20 Oxygen Delivery Method 07/04/22 11:20 Course <Monica Valdez PA-C - Last Filed: 07/04/22 20:15> Vital Signs Vital signs: Vital Signs - 8 hr 07/04/22 12:09 Pulse Rate 104 H Respiratory Rate 16 Blood Pressure 128/79 Pulse Oximetry 96 Oxygen Delivery Method Room Air <Bhavin Burgos MD - Last Filed: 08/15/22 08:49> Vital Signs Vital signs: Vital Signs - 8 hr 07/04/22 12:09 Pulse Rate 104 H Respiratory Rate 16 Blood Pressure 128/79 Pulse Oximetry 96 Oxygen Delivery Method Room Air MDM - Animal Bite <Monica Valdez PA-C - Last Filed: 07/04/22 20:15> [facility] Narrative Medical decision making narrative: 57-year-old male with no significant past medical history presents to the ED for a recheck of a wound sustained from a dog bite. The wound was rechecked. There are no overt signs of infection including erythema, swelling, warmth, discharge, tenderness to palpation. The wound which is an avulsion injury, appears to be healing well. Patient advised to continue antibiotics and topical wound care discussed. Patient declined tetanus update today, verbalizes that he understands the risks of not getting a tetanus update. ED return precautions were discussed with patient. Patient verbalized understanding. Discharge Plan Departure Patient Disposition: Home Clinical Impression: Dog bite Instructions: DI for Dog Bite Activity Restrictions/Additional Instructions: You were evaluated in the ED today for a dog bite. You were initially seen in the ED 10 days ago, and you were evaluated today for the dog bite. Your wound appears to be healing well with no overt signs of infection. Please continue to keep the wound clean and dry, apply Polysporin to keep the wound moist. Complete the full course of Augmentin. We discussed the need for a tetanus vaccine, however you decided against it at this time. Return to the ED if you notice signs of infection including swelling, redness, warmth, pain, discharge, fever, chills. Prescriptions: No Action gabapentin 300 mg capsule 300 mg PO DAILY Label Comments: take 1 capsule by mouth at bedtime acetaminophen 325 mg Tablet 650 mg PO TID Qty: 90 0RF aspirin 81 mg Tablet,Delayed Release (Dr/Ec) 81 mg PO BID Qty: 60 0RF ibuprofen 400 mg Tablet 400 mg PO Q4HR Qty: 90 0RF oxycodone 5 mg Tablet 5 mg PO Q3HR PRN (Reason: Pain, Moderate (4-6)) Qty: 30 0RF amoxicillin-pot clavulanate 875-125 mg tablet 1 tab PO BID Qty: 14 0RF Referrals: Billy Flores DO [Primary Care Provider] - Visit Report Forms: Patient Portal/API <Bhavin Burgos MD - Last Filed: 08/15/22 08:49> Cosign ED Attending Cosignature Attestation: I was immediately available for consultation of this patient was seen and evaluated by the APC in the department.
== END 2022-07-04 13:15 | disposition home or self-care (01) ==
PROVIDERS: Emergency Provider Student in an Organized Health Care Education/Training Program; PCP Student in an Organized Health Care Education/Training Program
DX: Z48.00 Encounter for change or removal of nonsurgical wound dressing (principal); W54.0XXA Bitten by dog, initial encounter
CPT/HCPCS: 99281

== ENCOUNTER → 2022-10-26 08:01 | Outpatient (CLI) | payer OTHER, SELFPAY ==
[2021-12-27 13:40] VITALS: BMI 28.3
[2022-10-26 08:47] LABS: Influenza A - CEPHEID Flu A NEGATIVE (NEGATIVE); Influenza B - CEPHEID Flu B NEGATIVE (NEGATIVE); Respiratory Syncytial Virus Negative (Negative)
[2022-10-26 10:05] LABS: COVID-19 CEPHEID 4-PLEX PCR Negative (Negative)
== END ==
PROVIDERS: PCP Student in an Organized Health Care Education/Training Program; Visit Provider Nurse Practitioner Family
DX: J06.9 Acute upper respiratory infection, unspecified (principal)
CPT/HCPCS: 0241U

== ENCOUNTER → 2023-01-29 11:14 | Outpatient (CLI) | payer OTHER, SELFPAY ==
[2021-12-27 13:40] VITALS: BMI 28.3
--- NOTE | 2023-01-29 11:15 | DI.RAD.S_ITS ---
PROCEDURE: XR ANKLE LT MIN 3V INDICATIONS: Left ankle injury TECHNIQUE: 3 views of the ankle were acquired. COMPARISON: None. FINDINGS: Bones: There is subtle lucency through the distal left fibula without definitive cortical disruption. This may represent a prominent nutrient foramen although nondisplaced fracture not excluded given history of trauma. Chronic corticated ossifications project adjacent to the medial malleolus. Normal alignment. Ankle mortise is normally aligned. No suspicious bony lesions. Soft tissues: No tibiotalar joint effusion. Achilles tendon appears normal. Lateral malleolus soft tissue swelling. IMPRESSION: Subtle lucency through the distal left fibula without definite cortical disruption may represent a prominent nutrient foramen versus nondisplaced fracture. Overlying soft tissue swelling of the lateral malleolus. Recommend immobilization and repeat imaging in 10-14 days. Dictated by: Roberto Abel M.D. on 01/29/2023 at 12:35 Approved by: Roberto Abel M.D. on 01/29/2023 at 12:38
--- NOTE | 2023-01-29 11:15 | DI.RAD.S_ITS ---
PROCEDURE: XR FOOT LT MIN 3V INDICATIONS: Left ankle injury TECHNIQUE: 3 views of the foot were acquired. COMPARISON: [facility], CR, XR FOOT LT MIN 3V, 01/17/2021, 16:36. FINDINGS: Bones: No fractures or dislocations. No suspicious bony lesions. Soft tissues: No tibiotalar joint effusion. Achilles tendon appears normal. IMPRESSION: Left foot without acute fracture or dislocation. If there is persistent clinical concern for occult fracture given adequate mechanism of injury, consider repeat imaging in 10-14 days. Dictated by: Roberto Abel M.D. on 01/29/2023 at 12:34 Approved by: Roberto Abel M.D. on 01/29/2023 at 12:35
== END ==
PROVIDERS: PCP Student in an Organized Health Care Education/Training Program; Referring Provider Registered Nurse; Visit Provider Registered Nurse
DX: M25.572 Pain in left ankle and joints of left foot (principal)
CPT/HCPCS: 73610; 73630

== ENCOUNTER → 2023-03-30 11:55 | Outpatient (CLI) | payer OTHER, SELFPAY ==
[2021-12-27 13:40] VITALS: BMI 28.3
--- NOTE | 2023-03-30 11:57 | DI.RAD.S_ITS ---
PROCEDURE: XR HIP W PEL IF DONE LT 2V INDICATIONS: Left hip pain TECHNIQUE: AP pelvis with lateral view(s) of the left hip(s). COMPARISON: [facility], , XR HIP W PEL IF DONE LT 2V, 12/27/2021, 11:47. FINDINGS: Bones: Expected appearance of total left hip arthroplasty. No evidence of hardware failure or loosening. No fractures or dislocations. Pelvic ring appears intact. No suspicious bony lesions. Soft tissues: The visualized bowel gas pattern is normal. No suspicious soft tissue calcifications. IMPRESSION: Expected appearance of total left hip arthroplasty. Dictated by: Lopez Ziegler M.D. on 03/30/2023 at 12:25 Approved by: Lopez Ziegler M.D. on 03/30/2023 at 12:27
== END ==
PROVIDERS: PCP Student in an Organized Health Care Education/Training Program; Referring Provider Physician Assistant; Visit Provider Physician Assistant
DX: M25.552 Pain in left hip (principal); Z96.642 Presence of left artificial hip joint
CPT/HCPCS: 73502

== ENCOUNTER 2023-07-02 09:26 | Emergency (ER) | payer OTHER, SELFPAY ==
[2021-12-27 13:40] VITALS: BMI 28.3
[2023-07-02 09:29] VITALS: BP 171/97; PULSE 126; RESP 14; TEMP 37.1; O2SAT 99; BMI 28.3
--- NOTE | 2023-07-02 09:42 | DI.RAD.S_ITS ---
PROCEDURE: XR SHOULDER RT MIN 2V INDICATIONS: ATRAUMATIC SHOULDER PAIN TECHNIQUE: 3 views of the shoulder were acquired. COMPARISON: None. FINDINGS: Bones: No fractures or dislocations. No suspicious bony lesions. Visualized ribs appear intact. Degenerative changes are seen, with mild subacromial spurring. Soft tissues: No suspicious soft tissue calcifications. The visualized lung demonstrates an unremarkable appearance. IMPRESSION: Mild degenerative changes are seen by plain film. If it would be helpful for clinical management decision making, please consider a dedicated, scheduled shoulder MRI for further evaluation (assuming that there is no contraindication). Dictated by: Gregory Harrell M.D. on 07/02/2023 at 9:58 Approved by: Gregory Harrell M.D. on 07/02/2023 at 9:59
--- NOTE | 2023-07-02 09:43 | ED.UPPEXIN ---
HPI - Extremity Injury (Upper) General Chief Complaint: Extremity Injury, Upper Stated Complaint: rt shoulder pain T-14 from work injury Time Seen by Provider: 07/02/23 09:38 Source: patient Mode of arrival: Ambulatory History of Present Illness HPI narrative: Patient reports 2 weeks of R shoulder pain. Lots of repetitive movements - patient works for [employer] and frequently raises his arms over shoulder height. No medications taken at home prior to arrival. Denies trauma. Related Data Home Medications Medication Instructions Recorded Confirmed acetaminophen 325 mg tablet 650 mg PO TID PRN Pain (Scale 07/02/23 07/02/23 Score 1-3) ibuprofen 400 mg tablet 400 mg PO Q8HR PRN Pain (Scale 07/02/23 07/02/23 Score 4-6) Allergies Allergy/AdvReac Type Severity Reaction Status Date / Time No Known Drug Allergies Allergy Verified 07/02/23 09:34 Review of Systems Review of Systems Narrative: Reports: R shoulder pain. Denies numbness, weakness Patient History Medical History Depression Hearing loss No significant family history Osteoarthritis Tinnitus Vision disorder Surgical History History of vasectomy Hx of arthroscopy of right knee (1991) Hx of tonsillectomy Social History (System 06/26/22 @ 07:36 by Zaina Davison) household members: significant other Smoking Status: Current every day smoker alcohol intake: current Smoking Status: Current every day smoker tobacco type: cigarettes alcohol intake frequency: holidays/special occasions only Substance Use Type: marijuana Exam Initial Vital Signs Initial Vital Signs: Vital Signs Temperature 98.8 F 07/02/23 09:29 Pulse Rate 126 H 07/02/23 09:29 Respiratory Rate 14 07/02/23 09:29 Blood Pressure 171/97 H 07/02/23 09:29 Pulse Oximetry 99 07/02/23 09:29 Oxygen Delivery Method Room Air 07/02/23 09:29 MSK: No deformity. Tenderness over anterior deltoid and biceps muscle on R side. Full ROM. 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 I explained that XR would not be helpful in diagnosing muscle or tendon injury however patient insisted he wanted an XR to see what's going on. XR shows no abnormality. Patient counseled on RICE, given referral to orthopedic surgery. Orders Ordered: ED Orders 07/02/23 09:42 XR shoulder RT min 2V Stat Vital Signs Vital signs: Vital Signs - 8 hr 07/02/23 11:00 07/02/23 11:00 07/02/23 11:46 Pulse Rate 100 H 98 H Pulse Rate [Right Radial] 100 H Respiratory Rate 14 15 Blood Pressure 122/78 Pulse Oximetry 99 Oxygen Delivery Method Room Air Discharge Plan Departure Patient Disposition: Home Clinical Impression: Repetitive strain injury of shoulder Instructions: How To Perform RICE (Rest, Ice, Compress, Elevate), DI for Shoulder Pain Prescriptions: No Action acetaminophen 325 mg tablet 650 mg PO TID PRN (Reason: Pain (Scale Score 1-3)) ibuprofen 400 mg tablet 400 mg PO Q8HR PRN (Reason: Pain (Scale Score 4-6)) Referrals: Billy Flores DO [Primary Care Provider] - Meme Pringle MD [Physician] - Stand Alone Forms: Patient Portal/API
[2023-07-02 11:00] VITALS: PULSE 100; RESP 14
[2023-07-02 11:46] VITALS: BP 122/78; PULSE 98; RESP 15; O2SAT 99
== END 2023-07-02 11:48 | disposition home or self-care (01) ==
PROVIDERS: Emergency Provider Emergency Medicine; PCP Student in an Organized Health Care Education/Training Program
DX: S46.911A Strain of unspecified muscle, fascia and tendon at shoulder and upper arm level, right arm, initial encounter (principal); X58.XXXA Exposure to other specified factors, initial encounter; Y99.0 Civilian activity done for income or pay
CPT/HCPCS: 73030; 99283

== ENCOUNTER → 2023-07-26 07:16 | Outpatient (CLI) | payer OTHER, SELFPAY ==
[2021-12-27 13:40] VITALS: BMI 28.3
--- NOTE | 2023-07-26 07:17 | DI.MRI.S_ITS ---
PROCEDURE: MR SHOULDER RT WO CON INDICATIONS: Pain in right shoulder TECHNIQUE: Noncontrast oblique coronal T2 fast spin echo with fat saturation, oblique sagittal T1 spin echo and T2 fast spin echo with fat saturation, axial T1 spin echo and T2 fast spin echo with fat saturation through the shoulder. COMPARISON: [facility], MR, MR SHOULDER RT WO CON, 08/25/2019, 19:11. FINDINGS: Image quality: Excellent. Rotator cuff: There is full-thickness rupture of supraspinatus at its insertion on humeral head with up to 4.3 cm medial retraction of torn tendon fibers to the level of acromioclavicular joint. Distal infraspinatus tendinosis and low-grade articular surface partial-thickness tear at its insertion on the humeral head is seen. Low-grade intrasubstance partial-thickness tear involving superior fibers of distal subscapularis is also seen. Sagittal images demonstrate moderate to severe supraspinatus muscle atrophy. Bones and bursae: Moderate to severe acromioclavicular joint osteoarthritic changes are seen with significant joint space narrowing, subchondral sclerosis and cyst formation and prominent downward osteophyte formation depressing the musculotendinous junction of supraspinatus. Superior migration of humeral head in relation to glenoid is seen. There is moderate amount of joint effusion and subacromial subdeltoid bursal fluid. No gross loose bodies. No acute fracture or dislocation. Capsule and soft tissues: Signal abnormality and fraying of posterior inferior labrum at 6 to 7 o'clock position is seen suggestive of posterior inferior labral tear. The long head of the biceps tendon appears markedly attenuated . The rotator interval appears normal, without fibrosis. The coracohumeral ligament is normal in thickness. IMPRESSION: 1. Full-thickness rupture of distal supraspinatus at its insertion on the humeral head with up to 4.3 cm medial retraction of torn tendon fibers to the level of acromioclavicular joint. Moderate to severe supraspinatus muscle atrophy. 2. Low-grade articular surface partial-thickness tear involving distal infraspinatus at its insertion on the humeral head. Low-grade partial-thickness tear involving superior fibers of distal subscapularis. 3. Suggestion of moderate grade partial-thickness tear involving intra-articular portion of long head of biceps tendon. 4. Moderate acromioclavicular joint osteoarthritis. Moderate amount of joint effusion and subacromial subdeltoid bursal fluid. 5. Suggestion of posterior inferior labral tear at 6 to 7 o'clock position. Dictated by: Yovani Sims M.D. on 07/26/2023 at 10:10 Approved by: Yovani Sims M.D. on 07/26/2023 at 10:25
== END ==
PROVIDERS: PCP Student in an Organized Health Care Education/Training Program; Referring Provider Physician Assistant; Visit Provider Physician Assistant
DX: M75.121 Complete rotator cuff tear or rupture of right shoulder, not specified as traumatic (principal); M19.011 Primary osteoarthritis, right shoulder; M25.511 Pain in right shoulder
CPT/HCPCS: 73221

== ENCOUNTER 2023-08-02 10:20 | Outpatient (RCR) | payer OTHER, SELFPAY ==
[2021-12-27 13:40] VITALS: BMI 28.3
--- NOTE | 2023-08-02 13:57 | PT.OIE ---
Current Diagnoses Pain in right shoulder (08/02/23) Past Medical History (Last Reviewed 04/09/23 @ 07:52 by Jasmin Leroy PA-C) Depression Hearing loss No significant family history Osteoarthritis Tinnitus Vision disorder Past Surgical History (Last Reviewed 04/09/23 @ 07:52 by Jasmin Leroy PA-C) History of vasectomy Hx of arthroscopy of right knee (1991) Hx of tonsillectomy Visit Care Team Role Provider Type Jonathan Avendano PA-C Attending Provider Non-Staff Family Provider Primary Care Provider Referring Provider Specialty: Medical Address: [address] [place] [address], [id number] Phone: Email: Physical Therapy Initial Evaluation PT-OP-A Visit Information Start: 08/02/23 10:35 Freq: Status: Active Protocol: Document 08/02/23 13:45 ED (Rec: 08/02/23 13:57 ED [id number]) Out-Patient Physical Therapy Visit Information Visit Information Visit Type Initial Evaluation Visit Start Time 10:40 Visit Stop Time 11:20 Total Visit Minutes 40 Visit Number 1 Evaluation Information Evaluation Date 08/02/23 PT-OP-B Current Condition Start: 08/02/23 10:35 Freq: Status: Active Protocol: Document 08/02/23 13:45 ED (Rec: 08/02/23 13:57 ED [id number]) Current Condition History of Current Condition Onset Date June Current Complaints R shoulder pain History of Current Condition Pt states that a few weeks ago while working he felt and heard a pop in his R shoulder that resulted in pain and decreased ROM and strength. He subsequently has had radiographs and an MRI. He tried working this week but only was able to work on Sunday b/c the pain was too much. He thinks he tore something. He states he has an orthopedist f/u on 08/06/23. He says he's very anxious about what is going on. 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 PT-OP-C Subjective Start: 08/02/23 10:35 Freq: Status: Active Protocol: Document 08/02/23 13:45 ED (Rec: 08/02/23 13:57 ED [id number]) OP-PT Subjective Patient Comments Patient Comments Figure out what to do about torn muscle Patient Questionnaires Quick Dash- Upper Extremity Quick Dash UE Score 59.1 / 100 = 59.1 % Quick Dash UE Impairment 40 to 59% Impaired (Score 40- 59) PT-OP-K Range of Motion Start: 08/02/23 10:35 Freq: Status: Active Protocol: Document 08/02/23 13:45 ED (Rec: 08/02/23 13:57 ED [id number]) Shoulder Goniometric Range of Motion Shoulder Right Active Shoulder ROM WFL Yes Testing Position Sitting Flexion 165 Abduction 150 External Rotation at 90 degrees 30 Abduction External Rotation at 0 degrees Abduction 60 PT-OP-L Special Tests Start: 08/02/23 10:35 Freq: Status: Active Protocol: Document 08/02/23 13:45 ED (Rec: 08/02/23 13:57 ED [id number]) Special Tests Shoulder Special Tests Drop Arm Rotator Cuff Test Results - PT-OP-M Strength Start: 08/02/23 10:35 Freq: Status: Active Protocol: Document 08/02/23 13:45 ED (Rec: 08/02/23 13:57 ED [id number]) Shoulder Strength Shoulder Manual Muscle Testing Right Flexion 4- Good- Extension 4 Good Abduction (C5) 4- Good- External Rotation 4- Good- Internal Rotation 4 Good PT-OP-T Assessment and Plan Start: 08/02/23 10:35 Freq: Status: Active Protocol: Document 08/02/23 13:45 ED (Rec: 08/02/23 13:57 ED [id number]) Physical Therapy Assessment Rehab Potential Rehabilitation Potential Fair Evaluation Complexity Number of Personal Factors/Comorbidities 1-2 Number of Body Systems Impaired 3 Clinical Presentation at Evaluation Evolving Impairments Impairments Activity Tolerance,Functional Activities,Pain,ROM,Strength Goals occupational duties Impairment occupational duties Impairment unable to perform normal occupational duties Indigo Mixer Goal (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 LTG Duration 6-8 weeks QuickDASH Impairment QuickDASH Impairment 59.1 / 100 = 59.1 % Indigo Mixer Goal (LTG) Pt will improve QuickDASH score by >9 points to a score of 50/100. LTG Duration 6-8 weeks shoulder strength Impairment shoulder strength Impairment flexion MMT: 4-5/ ER MMT: 4-/5 Short Term Goal (STG) pt will improve MMT of flexion and/or ER to 4/5. STG Duration 3 weeks Indigo Mixer Goal (LTG) pt will improve MMT of flexion and/or ER to 4+/5. HEP Impairment HEP Short Term Goal (STG) Pt will report performing HEP >3 days/week. STG Duration 3 weeks Intermediate Goal (LTG) Pt will report performing HEP >3 days/week. LTG Duration 6-8 weeks Assessment Summary Assessment Pt reported to PT for acute R shoulder pain after he felt a pop at work. MRI revealed supraspinatus tear in addition to other pathologies. Pt demonstrated relatively good AROM of his R shoulder and demonstrated minimal scapular elevation compensation pattern when raising his arm. His R shoulder flexion AROM was ~165 degrees. Pt did demonstrate weakness in his R shoulder especially for the deltoid and into external rotation which was partially limited by pain. Pt overall demonstrated anxiety regarding his current injury. PT tried reassuring patient that his ROM was good as well as his glenohumeral rhythm so conservative care may suffice for management. PT provided initial HEP of : rows, sidelying ER, and scaption isometric holds all using light weight. Physical Therapy Plan Frequency and Duration Frequency of Treatment 2x/Week Duration of treatment (weeks) 10 Plan of Care Start Date 08/02/23 Plan of Care End Date 10/31/23 Therapeutic Interventions Therapeutic Interventions Home Exercise Program,Joint Mobilizations,Manual Therapy, Neuromuscular Re-education, Orthotic/Prosthetic Management ,Patient/Caregiver Education, Soft Tissue Mobilization, Taping,Therapeutic Activities, Therapeutic Exercises Next Visit Focus/Plan Next Note Type Treatment Note Next Visit Plan UBE, HEP (s/l ER, rows, scaption isometrics), row, wall slide, ER walkouts, SAPD
--- NOTE | 2023-08-02 13:59 | PT.OPPOC ---
Physical, Occupational & Speech Therapy At [facility] Current Diagnoses Pain in right shoulder (08/02/23) Visit Care Team Role Provider Type Jonathan Avendano PA-C Attending Provider Non-Staff Family Provider Primary Care Provider Referring Provider Specialty: Medical Address: [address] [place] [address], [id number] Phone: Email: Plan Of Care PT-OP-T Assessment and Plan Start: 08/02/23 10:35 Freq: Status: Active Protocol: Document 08/02/23 13:45 ED (Rec: 08/02/23 13:57 ED [id number]) Physical Therapy Assessment Rehab Potential Rehabilitation Potential Fair Evaluation Complexity Number of Personal Factors/Comorbidities 1-2 Number of Body Systems Impaired 3 Clinical Presentation at Evaluation Evolving Impairments Impairments Activity Tolerance,Functional Activities,Pain,ROM,Strength Goals occupational duties Impairment occupational duties Impairment unable to perform normal occupational duties 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 LTG Duration 6-8 weeks QuickDASH Impairment QuickDASH Impairment 59.1 / 100 = 59.1 % Medical Sales Specialist Goal (LTG) Pt will improve QuickDASH score by >9 points to a score of 50/100. LTG Duration 6-8 weeks shoulder strength Impairment shoulder strength Impairment flexion MMT: 4-5/ ER MMT: 4-/5 Short Term Goal (STG) pt will improve MMT of flexion and/or ER to 4/5. STG Duration 3 weeks Nursing Home Goal (LTG) pt will improve MMT of flexion and/or ER to 4+/5. HEP Impairment HEP Short Term Goal (STG) Pt will report performing HEP >3 days/week. STG Duration 3 weeks Nursing Home Goal (LTG) Pt will report performing HEP >3 days/week. LTG Duration 6-8 weeks Assessment Summary Assessment Pt reported to PT for acute R shoulder pain after he felt a pop at work. MRI revealed supraspinatus tear in addition to other pathologies. Pt demonstrated relatively good AROM of his R shoulder and demonstrated minimal scapular elevation compensation pattern when raising his arm. His R shoulder flexion AROM was ~165 degrees. Pt did demonstrate weakness in his R shoulder especially for the deltoid and into external rotation which was partially limited by pain. Pt overall demonstrated anxiety regarding his current injury. PT tried reassuring patient that his ROM was good as well as his glenohumeral rhythm so conservative care may suffice for management. PT provided initial HEP of : rows, sidelying ER, and scaption isometric holds all using light weight. Physical Therapy Plan Frequency and Duration Frequency of Treatment 2x/Week Duration of treatment (weeks) 10 Plan of Care Start Date 08/02/23 Plan of Care End Date 10/31/23 Therapeutic Interventions Therapeutic Interventions Home Exercise Program,Joint Mobilizations,Manual Therapy, Neuromuscular Re-education, Orthotic/Prosthetic Management ,Patient/Caregiver Education, Soft Tissue Mobilization, Taping,Therapeutic Activities, Therapeutic Exercises Next Visit Focus/Plan Next Note Type Treatment Note Next Visit Plan UBE, HEP (s/l ER, rows, scaption isometrics), row, wall slide, ER walkouts, SAPD Plan of Care Dates Plan of Care Start Date 08/02/23 Plan of Care End Date 10/31/23 Electronically Signed by: Keyon Elmore, PT 08/02/23 [id number] If you are in agreement with this Plan of Care, please return a signed and dated copy. I have reviewed this Plan of Care and certify that the skilled therapy services above are required to meet the patient?s needs. Physician Signature Date Printed Name and Credentials Clinical Instructor Signature Printed Name and Credentials
--- NOTE | 2023-08-07 15:23 | PT.OPDS ---
Current Diagnoses Pain in right shoulder (08/02/23) Visit Care Team Role Provider Type Jonathan Avendano PA-C Attending Provider Non-Staff Family Provider Primary Care Provider Referring Provider Specialty: Medical Address: [address] [place] [address], [id number] Phone: Email: Visit Number Visit Number 1 Discharge Summary PT-OP-B Current Condition Start: 08/02/23 10:35 Freq: Status: Active Protocol: Document 08/02/23 13:45 ED (Rec: 08/02/23 13:57 ED [id number]) Current Condition History of Current Condition Onset Date June Current Complaints R shoulder pain History of Current Condition Pt states that a few weeks ago while working he felt and heard a pop in his R shoulder that resulted in pain and decreased ROM and strength. He subsequently has had radiographs and an MRI. He tried working this week but only was able to work on Sunday b/c the pain was too much. He thinks he tore something. He states he has an orthopedist f/u on 08/06/23. He says he's very anxious about what is going on. 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 PT-OP-C Subjective Start: 08/02/23 10:35 Freq: Status: Active Protocol: Document 08/02/23 13:45 ED (Rec: 08/02/23 13:57 ED [id number]) OP-PT Subjective Patient Comments Patient Comments Figure out what to do about torn muscle Patient Questionnaires Quick Dash- Upper Extremity Quick Dash UE Score 59.1 / 100 = 59.1 % Quick Dash UE Impairment 40 to 59% Impaired (Score 40- 59) PT-OP-K Range of Motion Start: 08/02/23 10:35 Freq: Status: Active Protocol: Document 08/02/23 13:45 ED (Rec: 08/02/23 13:57 ED [id number]) Shoulder Goniometric Range of Motion Shoulder Right Active Shoulder ROM WFL Yes Testing Position Sitting Flexion 165 Abduction 150 External Rotation at 90 degrees 30 Abduction External Rotation at 0 degrees Abduction 60 PT-OP-L Special Tests Start: 08/02/23 10:35 Freq: Status: Active Protocol: Document 08/02/23 13:45 ED (Rec: 08/02/23 13:57 ED [id number]) Special Tests Shoulder Special Tests Drop Arm Rotator Cuff Test Results - PT-OP-M Strength Start: 08/02/23 10:35 Freq: Status: Active Protocol: Document 08/02/23 13:45 ED (Rec: 08/02/23 13:57 ED [id number]) Shoulder Strength Shoulder Manual Muscle Testing Right Flexion 4- Good- Extension 4 Good Abduction (C5) 4- Good- External Rotation 4- Good- Internal Rotation 4 Good PT-OP-T Assessment and Plan Start: 08/02/23 10:35 Freq: Status: Active Protocol: Document 08/07/23 15:22 ED (Rec: 08/07/23 15:23 ED [id number]) Physical Therapy Assessment Assessment Summary Assessment Pt and PT spoke over phone today. Pt is going to go forward with a rotator cuff repair for his supraspinatus sometime in the near future. Due to the change in the POC ( conservative vs surgical care) , patient will be discharged from PT at this time but will likely be back for post- surgical rehabilitation. Physical Therapy Plan Discharge Physical Therapy Discharge Reasons Change in Medical Status
== END 2023-08-10 07:51 ==
LOC: PHYS 10:20
PROVIDERS: Family Provider Physician Assistant; PCP Physician Assistant; Referring Provider Physician Assistant; Visit Provider Physician Assistant
DX: M25.511 Pain in right shoulder (principal)
CPT/HCPCS: 97162